=== PATIENT | male | born 1935 | race Caucasian/White ===

== ENCOUNTER 2017-03-19 09:04 | Inpatient (IN) | payer MEDICARE, MEDICAID ==
--- NOTE | 2017-03-19 09:28 | ED Physician Chart ---
ED Chief Complaint/HPI - Patient Information Date Seen:: 03/19/17 Time Seen:: 09:04 Chief Complaint:: Unable to urinate for 2 days. History of Present Illness:: Brought in by ambulance because pt has been unable to urinate for 2 days. 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 Pt required Paz catheterization about a year ago according to pt. Pt denies any abdominal pain. No fever or lightheadedness. Pt also had had nonbloody loose stool for 2 days. Last BM at about 0800 today that was loose and nonbloody. Pt denies recent travel, antibiotic use, or ingestion of any contaminated food or liquid. Allergies:: Allergies Allergy/AdvReac Type Severity Reaction Status Date / Time No Known Allergies Allergy Verified 03/19/17 09:12 Vitals:: Vital Signs - 8 hr 03/19/17 09:12 Temp 97.7 F HR 66 RR 17 BP 148/80 O2 Sat % 98 Historian:: Patient Family MD/PCP:: Dr. Jimenez LMP:: N/A Review:: Nurse's Note Reviewed ED Review of Systems - Review of Systems General/Constitutional: No fever, No chills, No weight loss, Weakness ( generalized), No edema, Loss of appetite Skin: No skin lesions, No rash, No bruising Head: No headache, No light-headedness Eyes: No loss of vision, No pain, No diplopia ENT: No earache, No nasal drainage, No sore throat Neck: Neck pain (Pt has had left mid lateral neck pain for 2 days that can be precipitated with palpation and neck movements. No h/o injury/trauma to his neck.), No swelling, No thyromegaly, No stiffness, No mass noted Cardio Vascular: No chest pain, No palpitations, No PND, No orthopnea, No edema Pulmonary: No SOB, No cough, No wheezing GI: No nausea, No vomiting, Diarrhea, No pain, No melena, No hematochezia, No hematemesis G/U: No dysuria, No frequency, No hematuria Musculoskeletal: Other (Neck pain, see above.) Endocrine: No polyuria, No polydipsia Psychiatric: No prior psych history Hematopoietic: No bruising, No lymphadenopathy Allergic/Immuno: No urticaria, No angioedema Neurological: No syncope, No focal symptoms, Weakness (generalized.), No paresthesia, No headache, No dizziness, No confusion ED Past Medical History - Past Medical History Past Medical History: Other (BPH) Family History: None Social History: Smoker ( 1 ppd. Pt has been informed about health risks assoicated with chronic tobacco use and has been advised to quit. Pt has been encouraged to enroll in a smoking cessation program. 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 Breathes comfortably, speaks clearly, and interacts appropriately. Head: Atraumatic Eyes: Lids, conjuctiva normal, PERRL, EOMI Skin: No rash, No skin lesions, No ecchymosis, No lymphadenopathy ENMT: External ears, nose nl, Nasal exam nl, Oropharynx nl Other ENMT comments:: Mucous membrane is dry. Neck: No JVD, No nuchal rigidity, No mass, No stridor Other Neck comments:: Mild tenderness to palpation at left mid lateral aspect. No gross deformity, erythema, swelling or open wound. Respiratory: Nl effort/Exclusion, Clear to Auscultation, No Wheeze/Rhonchi/Rales Cardio Vascular: RRR, No murmur, gallop, rubs GI: No tenderness/rebounding/guarding, No organomegaly, No hernia, Normal BS's, Nondistended, No mass/bruits, No McBurney tenderness Other GI comments:: Abdomen is soft. : No CVA tenderness Extremities: No tenderness or effusion, Full ROM, No edema Neuro/Psych: Alert/oriented (oriented x 3), Mood normal, No focal deficits ED Labs/Radiology/EKG Results - Lab Results Results: Laboratory Tests 03/19/17 03/19/17 03/19/17 09:30 09:30 09:30 WBC 7.2 RBC 3.77 L Hgb 11.4 L Hct 34.0 L MCV 90.1 MCH 30.1 MCHC Differential 33.5 RDW 14.7 Plt Count 158 MPV 7.7 Neutrophils % 89.8 H Lymphocytes % 6.1 L Monocytes % 3.5 Eosinophils % 0.4 Basophils % 0.2 PT 9.3 L INR 0.90 PTT (Actin FS) 22.8 L Sodium 136 Potassium 1.5 L* Chloride 100 Carbon Dioxide 22.0 Anion Gap 15.5 BUN 51 H Creatinine 4.7 H* Est GFR ( Amer) TNP Est GFR (Non-Af Amer) TNP BUN/Creatinine Ratio 10.9 Glucose 122 Calcium 8.5 L Total Bilirubin 0.8 AST 101 H ALT 87 H Alkaline Phosphatase 51 Total Protein 6.4 Albumin 3.6 L Globulin 2.8 Albumin/Globulin Ratio 1.3 Laboratory Last Values WBC 7.2 Th/cmm (4.8-10.8) 03/19/17 09:30 RBC 3.77 Mil/cmm (3.80-5.80) L 03/19/17 09:30 Hgb 11.4 gm/dL (12-16) L 03/19/17 09:30 Hct 34.0 % (41.0-60) L 03/19/17 09:30 MCV 90.1 fl (80-99) 03/19/17 09:30 MCH 30.1 pg (27.0-31.0) 03/19/17 09:30 MCHC Differential 33.5 pg (28.0-36.0) 03/19/17 09:30 RDW 14.7 % (11.5-20.0) 03/19/17 09:30 Plt Count 158 Th/cmm (150-400) 03/19/17 09:30 MPV 7.7 fl 03/19/17 09:30 Neutrophils % 89.8 % (40.0-80.0) H 03/19/17 09:30 Lymphocytes % 6.1 % (20.0-50.0) L 03/19/17 09:30 Monocytes % 3.5 % (2.0-10.0) 03/19/17 09:30 Eosinophils % 0.4 % (0.0-5.0) 03/19/17 09:30 Basophils % 0.2 % (0.0-2.0) 03/19/17 09:30 PT 9.3 SECONDS (9.5-11.5) L 03/19/17 09:30 INR 0.90 (0.5-1.4) 03/19/17 09:30 PTT (Actin FS) 22.8 SECONDS (26.0-38.0) L 03/19/17 09:30 Sodium 136 mEq/L (136-145) 03/19/17 09:30 Potassium 1.5 mEq/L (3.5-5.1) L* 03/19/17 09:30 Chloride 100 mEq/L (98-107) 03/19/17 09:30 Carbon Dioxide 22.0 mEq/L (21.0-31.0) 03/19/17 09:30 Anion Gap 15.5 (7.0-16.0) 03/19/17 09:30 BUN 51 mg/dL (7-25) H 03/19/17 09:30 Creatinine 4.7 mg/dL (0.7-1.3) H* 03/19/17 09:30 Est GFR ( Amer) TNP 03/19/17 09:30 Est GFR (Non-Af Amer) TNP 03/19/17 09:30 BUN/Creatinine Ratio 10.9 03/19/17 09:30 Glucose 122 mg/dL 03/19/17 09:30 Calcium 8.5 mg/dL (8.6-10.3) L 03/19/17 09:30 Magnesium 2.4 mg/dL (1.9-2.7) 03/19/17 09:30 Total Bilirubin 0.8 mg/dL (0.3-1.0) 03/19/17 09:30 AST 101 U/L (13-39) H 03/19/17 09:30 ALT 87 U/L (7-52) H 03/19/17 09:30 Alkaline Phosphatase 51 U/L (34-104) 03/19/17 09:30 Creatine Kinase 2080 U/L (30-223) H 03/19/17 10:14 Troponin I 0.16 ng/mL (0.01-0.05) H* 03/19/17 09:30 Total Protein 6.4 gm/dL (6.0-8.3) 03/19/17 09:30 Albumin 3.6 gm/dL (4.2-5.5) L 03/19/17 09:30 Globulin 2.8 gm/dL 03/19/17 09:30 Albumin/Globulin Ratio 1.3 (1.0-1.8) 03/19/17 09:30 Urine Source PAZ PORT 03/19/17 10:05 Urine Color YELLOW 03/19/17 10:05 Urine Clarity HAZY (CLEAR) 03/19/17 10:05 Urine pH 6.0 (4.6 - 8.0) 03/19/17 10:05 Ur Specific [place] 1.020 (1.005-1.030) 03/19/17 10:05 Urine Protein 30 mg/dL (NEGATIVE) H 03/19/17 10:05 Urine Glucose (UA) NEGATIVE mg/dL (NEGATIVE) 03/19/17 10:05 Urine Ketones NEGATIVE mg/dL (NEGATIVE) 03/19/17 10:05 Urine Blood LARGE (NEGATIVE) H 03/19/17 10:05 Urine Nitrate NEGATIVE (NEGATIVE) 03/19/17 10:05 Urine Bilirubin NEGATIVE (NEGATIVE) 03/19/17 10:05 Urine Urobilinogen 0.2 E.U./dL (0.2 - 1.0) 03/19/17 10:05 Ur Leukocyte Esterase NEGATIVE (NEGATIVE) 03/19/17 10:05 Urine RBC 5-10 /hpf (0-5) H 03/19/17 10:05 Urine WBC 0-2 /hpf (0-5) 03/19/17 10:05 Ur Epithelial Cells FEW /lpf (FEW) 03/19/17 10:05 Urine Bacteria OCCASIONAL /hpf (NONE SEEN) 03/19/17 10:05 - Radiology Results Results: CT of C spine report is pending. - EKG Interpretations EKG Time:: 10:08 Rate & Rhythm: Sinus bradycardia with VR 47 Comments:: RBBB and LAFB NSSTT changes. Cardiac monitoring: Sinus bradycardia with VR 50. No ectopy. ED Septic Shock - . Is Septic Shock (SBP<90, OR Lactate>4 mmol\L) present?: No - <6hrs of presentation: Vital Signs: Vital Signs - 8 hr 03/19/17 09:12 Temp 97.7 F HR 66 RR 17 BP 148/80 O2 Sat % 98 ED Reassessment (Disposition) - Reassessment Reassessment:: 1005 Lab results just became available. In light of hypokalemia, pt is to be put on cardiac monitoring. Pt is to be provided to potassium supplementation ( oral and IV). 12 lead EKG and magnesium level ordered. 1040 Remaining lab results just became available. Pt overall feels better and remains stable. Lab and EKG findings have been reviewed with pt. Management plan has been discussed. Admitting physician is to be contacted. 1100 Case was discussed with Dr. Land. Pt is to be admitted to ICU under his care. Dr. Land is to follow on pending CT report. 1140 Pt feels comfortable. He remains hemodynamicaly stable. Pt has produced about 200 ml urine since his arrival at ER. Pt continues to receive IV hydration and potassium. Reassessment Condition:: Improved - Diagnosis Diagnosis:: Hypokalemia Acute renal failure. Mildly elevated troponin I of unknown significance. Early rhabdomyolysis Neck pain of unknown etiology. H/O BPH with urinary retention H/O diarrhea - Patient Disposition Admitted to:: ICU Admitting Medical Physician:: Keith Land Time:: 11:45 Condition at Disposition:: Stable, Improved
[2017-03-19 09:36] LABS: % BASOPHILS 0.2 % (0.0-2.0); % EOSINOPHILS 0.4 % (0.0-5.0); % LYMPHOCYTES 6.1 % (20.0-50.0); % MONOCYTES 3.5 % (2.0-10.0); % NEUTROPHILS 89.8 % (40.0-80.0); HEMOGLOBIN 11.4 gm/dL (12-16); MEAN CELL VOLUME 90.1 fl (80-99); MEAN CORPUSCULAR HEMOGLOBIN 30.1 pg (27.0-31.0); MEAN CORPUSCULAR HGB CONC 33.5 pg (28.0-36.0); MEAN PLATELET VOLUME 7.7 fl; NEUTROPHILE ABSOLUTE 6.5 Th/cmm (1.8-8.0); PLATELET COUNT 158 Th/cmm (150-400); RED BLOOD COUNT 3.77 Mil/cmm (3.80-5.80); RED CELL DISTRIBUTION WIDTH 14.7 % (11.5-20.0); WHITE BLOOD COUNT 7.2 Th/cmm (4.8-10.8)
[2017-03-19] MEDS ORDERED: Sodium Chloride 0.9% 1,000 ML IV ONE (09:36)
[2017-03-19 09:49] LABS: INR 0.9 (0.5-1.4); PROTHROMBIN TIME (TEST) 9.3 SECONDS (9.5-11.5)
[2017-03-19 09:53] LABS: ALB/GLOB RATIO 1.3 (1.0-1.8); ALKALINE PHOSPHATASE 51 U/L (34-104); ANION GAP 15.5 (7.0-16.0); BILIRUBIN,TOTAL 0.8 mg/dL (0.3-1.0); BUN - UREA NITROGEN 51 mg/dL (7-25); BUN/CREATININE RATIO 10.9; CALCIUM SERUM 8.5 mg/dL (8.6-10.3); CHLORIDE 100 mEq/L (98-107); GLUCOSE 122 mg/dL; SGOT 101 U/L (13-39); SGPT/ALT 87 U/L (7-52); SODIUM SERUM 136 mEq/L (136-145)
[2017-03-19 09:56] LABS: CREATININE - SERUM 4.7 mg/dL (0.7-1.3); POTASSIUM SERUM 1.5 mEq/L (3.5-5.1)
[2017-03-19] MEDS ORDERED: Potassium Phosphate 20 MMOLE in Sodium Chloride 0.9% 250 ML IV ONE (10:04)
[2017-03-19] MEDS ORDERED: Potassium Chloride 20 mEq ER Tab PO ONE ×2 (10:07→10:15)
[2017-03-19 10:19] LABS: URINE BILIRUBIN NEGATIVE (NEGATIVE); URINE BLOOD LARGE (NEGATIVE); URINE GLUCOSE (UA) NEGATIVE (NEGATIVE); URINE KETONE NEGATIVE (NEGATIVE); URINE PROTEIN 30 mg/dL (NEGATIVE); URINE UROBILINOGEN 0.2 E.U./dL (0.2 - 1.0)
[2017-03-19 10:20] LABS: URINE COLOR YELLOW
[2017-03-19 10:24] LABS: URINE WBC 0-2 /hpf (0-5)
[2017-03-19 10:25] LABS: URINE BACTERIA OCCASIONAL /hpf (NONE SEEN); URINE EPITHELIAL CELLS FEW /lpf (FEW)
[2017-03-19] MEDS ORDERED: D5-0.45NS w/40 mEq KCL 1,000 ML IV ONE (10:37)
[2017-03-19] MEDS ORDERED: DEXTROSE IV ONE (10:46)
[2017-03-19] MEDS ORDERED: [UNRECOGNIZED DRUG - OTHER] IV ONE (10:46)
[2017-03-19] MEDS ORDERED: POTASSIUM CHLORIDE IV ONE (10:46)
[2017-03-19] MEDS ORDERED: KCL 20mEq/100mL Premix 20 MEQ/100 ML PIGGYBACK IV ONE ×2 (10:53→20:51)
[2017-03-19] MEDS ORDERED: D5-0.45NS 1,000 ML IV ONE (10:55)
[2017-03-19] MEDS: KCL 20mEq/100mL Premix 20 MEQ/100 ML PIGGYBACK IV SCH ×4 (10:56→22:54)
[2017-03-19 11:00] LABS: CREATINE KINASE MB 72.1 ng/mL (0.6-6.3)
--- NOTE | 2017-03-19 11:12 | Diagnostic Imaging Report ---
CT cervical spine without IV contrast HISTORY: Pain COMPARISON: None Technique: Axial images were obtained from the skull base to the upper thoracic spine without IV contrast. Multiplanar reconstructions were made. Total DLP: 284, CTDI14 FINDINGS: Images of the cervical spine obtained without contrast demonstrate no evidence of an acute fracture or subluxation. Osteopenia is noted. Advanced multilevel degenerative changes are seen including moderate to advanced disc space loss of height at C5/C6 and C6/C7. Mild multilevel marginal osteophytic spurring is noted. Advanced facet degenerative changes are also noted. No prevertebral soft tissue swelling. Increased density possible food contents are seen in the esophagus. Biapical lung pleural-parenchymal disease is noted. IMPRESSION: No evidence of acute fracture or subluxation. Advanced multilevel degenerative changes. Biapical pleural and parenchymal lung disease. Food contents or other ingested material within the proximal esophagus incidentally noted.
[2017-03-19] MEDS ORDERED: Potassium Chloride 40 MEQ, Lidocaine 1% 20mL Vial 25 MG in Sodium Chloride 0.9% 250 ML IV ONE (11:38)
[2017-03-19] MEDS ORDERED: D5-0.45NS 1,000 ML IV SCH (11:45)
[2017-03-19 12:57] LABS: ANION GAP 11.4 (7.0-16.0); BUN - UREA NITROGEN 49 mg/dL (7-25); BUN/CREATININE RATIO 10.7; CALCIUM SERUM 8.4 mg/dL (8.6-10.3); CARBON DIOXIDE 25.2 mEq/L (21.0-31.0); CHLORIDE 100 mEq/L (98-107); SODIUM SERUM 135 mEq/L (136-145)
[2017-03-19 13:06] LABS: CREATININE - SERUM 4.6 mg/dL (0.7-1.3); POTASSIUM SERUM 1.6 mEq/L (3.5-5.1)
[2017-03-19] MEDS ORDERED: Probiotic Screen MC PRN (13:22)
[2017-03-19 14:04] LABS: GLUCOSE 168 mg/dL
[2017-03-19] MEDS: Albuterol/Ipratropium Neb 3 ML AERS HHN SCH ×2 (14:09→19:14)
--- NOTE | 2017-03-19 16:55 | General Progress Note ---
Subjective - Review of Systems Service Date: 03/19/17 Subjective: 1540 ER Physician Note: Responded to Rapid Response Call immediately when I was notified at about 1508. On arrival, pt's nurse related that pt had transient episode of tachydysrrhythmia with surveillance monitor tracing shows a run of wide complex ventricular tachycardia, and pt became unresponsive. On exam, VS P99, R19, BP 148/69 O2 saturation 98% Accuchek 243. WD cachetic male in NAD. Pt is responsive to voice and tactile stimuli. HEENT unremarkable. Neck Supple, NT, carotid 2+/2+, no JVD COR RRR without m/g/r Lungs clear Ext no c/c/e. 12 lead EKG: Sinus bradycardia with VR 54, RBBB, LAFB, LVH, NSSTT changes. Imp: Transient unresponsiveness due to ventricular tachycardia, currently hemodynamically stable. Hypokalemia, on IV K rider. Acute renal failure. Plan: Amiodarone 150 mg IV over 10 minutes to be given. Case was discussed with Dr. Lei (punch hand) at about 1525. He was updated about pt's clinical status with repeat EKG reviewed. He concurred with treatment given. He resumed care of pt and gave further orders to pt's nurse. Case was signed off to Dr. Lei at about 1530. I also spoke with pt's attending physician Dr. Land on the phone at about 1533 and updated him about pt's clinical status with EKG reviewed. He also resumed care of pt and gave further orders to pt's nurse. Case was signed off to Dr. Land at about 1538. Objective - Results Result Diagrams: 03/19/17 09:30 03/19/17 12:36 Recent Labs: Laboratory Last Values WBC 7.2 Th/cmm (4.8-10.8) 03/19/17 09:30 RBC 3.77 Mil/cmm (3.80-5.80) L 03/19/17 09:30 Hgb 11.4 gm/dL (12-16) L 03/19/17 09:30 Hct 34.0 % (41.0-60) L 03/19/17 09:30 MCV 90.1 fl (80-99) 03/19/17 09:30 MCH 30.1 pg (27.0-31.0) 03/19/17 09:30 MCHC Differential 33.5 pg (28.0-36.0) 03/19/17 09:30 RDW 14.7 % (11.5-20.0) 03/19/17 09:30 Plt Count 158 Th/cmm (150-400) 03/19/17 09:30 MPV 7.7 fl 03/19/17 09:30 Neutrophils % 89.8 % (40.0-80.0) H 03/19/17 09:30 Lymphocytes % 6.1 % (20.0-50.0) L 03/19/17 09:30 Monocytes % 3.5 % (2.0-10.0) 03/19/17 09:30 Eosinophils % 0.4 % (0.0-5.0) 03/19/17 09:30 Basophils % 0.2 % (0.0-2.0) 03/19/17 09:30 PT 9.3 SECONDS (9.5-11.5) L 03/19/17 09:30 INR 0.90 (0.5-1.4) 03/19/17 09:30 PTT (Actin FS) 22.8 SECONDS (26.0-38.0) L 03/19/17 09:30 Sodium 135 mEq/L (136-145) L 03/19/17 12:36 Potassium 1.6 mEq/L (3.5-5.1) L* 03/19/17 12:36 Chloride 100 mEq/L (98-107) 03/19/17 12:36 Carbon Dioxide 25.2 mEq/L (21.0-31.0) 03/19/17 12:36 Anion Gap 11.4 (7.0-16.0) 03/19/17 12:36 BUN 49 mg/dL (7-25) H 03/19/17 12:36 Creatinine 4.6 mg/dL (0.7-1.3) H* 03/19/17 12:36 Est GFR ( Amer) TNP 03/19/17 12:36 Est GFR (Non-Af Amer) TNP 03/19/17 12:36 BUN/Creatinine Ratio 10.7 03/19/17 12:36 Glucose 168 mg/dL 03/19/17 12:36 Calcium 8.4 mg/dL (8.6-10.3) L 03/19/17 12:36 Magnesium 2.4 mg/dL (1.9-2.7) 03/19/17 09:30 Total Bilirubin 0.8 mg/dL (0.3-1.0) 03/19/17 09:30 AST 101 U/L (13-39) H 03/19/17 09:30 ALT 87 U/L (7-52) H 03/19/17 09:30 Alkaline Phosphatase 51 U/L (34-104) 03/19/17 09:30 Creatine Kinase 2080 U/L (30-223) H 03/19/17 10:14 CK-MB (CK-2) 72.1 ng/mL (0.6-6.3) H 03/19/17 10:14 Troponin I 0.16 ng/mL (0.01-0.05) H* 03/19/17 12:36 Total Protein 6.4 gm/dL (6.0-8.3) 03/19/17 09:30 Albumin 3.6 gm/dL (4.2-5.5) L 03/19/17 09:30 Globulin 2.8 gm/dL 03/19/17 09:30 Albumin/Globulin Ratio 1.3 (1.0-1.8) 03/19/17 09:30 Urine Source PAZ PORT 03/19/17 10:05 Urine Color YELLOW 03/19/17 10:05 Urine Clarity HAZY (CLEAR) 03/19/17 10:05 Urine pH 6.0 (4.6 - 8.0) 03/19/17 10:05 Ur Specific [place] 1.020 (1.005-1.030) 03/19/17 10:05 Urine Protein 30 mg/dL (NEGATIVE) H 03/19/17 10:05 Urine Glucose (UA) NEGATIVE mg/dL (NEGATIVE) 03/19/17 10:05 Urine Ketones NEGATIVE mg/dL (NEGATIVE) 03/19/17 10:05 Urine Blood LARGE (NEGATIVE) H 03/19/17 10:05 Urine Nitrate NEGATIVE (NEGATIVE) 03/19/17 10:05 Urine Bilirubin NEGATIVE (NEGATIVE) 03/19/17 10:05 Urine Urobilinogen 0.2 E.U./dL (0.2 - 1.0) 03/19/17 10:05 Ur Leukocyte Esterase NEGATIVE (NEGATIVE) 03/19/17 10:05 Urine RBC 5-10 /hpf (0-5) H 03/19/17 10:05 Urine WBC 0-2 /hpf (0-5) 03/19/17 10:05 Ur Epithelial Cells FEW /lpf (FEW) 03/19/17 10:05 Urine Bacteria OCCASIONAL /hpf (NONE SEEN) 03/19/17 10:05 - Physical Exam Vitals and I&O: Vital Signs Temp 97.6 F 03/19/17 12:06 Pulse 77 03/19/17 14:11 Resp 18 03/19/17 14:15 BP 166/67 03/19/17 12:06 Pulse Ox 98 03/19/17 16:02 Intake & Output 03/18/17 03/19/17 03/19/17 19:59 06:59 18:59 Weight (lbs) 54.431 kg Active Medications: Current Medications Acetaminophen (Tylenol) 650 mg PO Q6H PRN PRN Reason: Mild Pain/Headache/T above 101 Stop: 05/18/17 11:32 Albuterol/Ipratropium (Duoneb Neb) 3 ml HHN [id number] [facility] Stop: 05/18/17 12:59 Last Admin: 03/19/17 14:09 Dose: 3 ml Enalaprilat (Vasotec) 1.25 mg IVP Q6HR [facility] Stop: 05/18/17 17:59 Sodium Chloride (Nacl 0.9%) 1,000 mls @ 100 mls/hr IV .Q10H ONE Stop: 03/19/17 19:35 Dextrose/Sodium Chloride (D5-0.45ns) 1,000 mls @ 110 mls/hr IV .Q9H6M [facility] Stop: 05/18/17 11:44 Last Admin: 03/19/17 14:50 Dose: 110 mls/hr Miscellaneous (Probiotic Screen) 1 ea MC PRN PRN PRN Reason: PROTOCOL Stop: 05/18/17 13:21 Ondansetron HCl (Zofran) 4 mg IVP Q6H PRN PRN Reason: Nausea / Vomiting Stop: 05/18/17 11:32 Temazepam (Restoril) 15 mg PO HS PRN; Protocol PRN Reason: Insomnia Stop: 05/18/17 11:32 Assessment/Plan - Problem List Patient Problems: All Active Problems URINARY RETENTION WITH DIARRHEA (Acute)
--- NOTE | 2017-03-19 18:49 | Consultation ---
DATE OF CONSULTATION: 03/19/2017 EMERGENT VASCULAR CONSULT REFERRING PHYSICIAN: Dr. Oliva. REASON FOR CONSULTATION: No IV access for medications and fluid administration. Thank you for referring this patient to me. HISTORY OF PRESENT ILLNESS: This is a 81-year-old male, who comes in, unable to urinate for 2 days. Apparently, he has not been taking fluids as well. He denies abdominal pain, fever, or lightheadedness. LABORATORY STUDIES: Showed WBC is normal, hemoglobin 11.4, neutrophils is 59.8%, PT is 9.3, potassium is 1.5, BUN 51, creatinine of 4.7. The creatine kinase is elevated at 2080. CK MB is 72.1. X-ray study of the spine shows no evidence of acute fracture or subluxation. PHYSICAL EXAMINATION: The patient is extremely asthenic. He is awake and alert. He has no family. Per request of the flash welding machine operator, the patient needs a Anderson catheter for possible hemodialysis for rhabdomyolysis and/or severe dehydration. JOB# [id number]
[2017-03-19 19:45] VITALS: BP 156/98
[2017-03-19 19:56] LABS: ALB/GLOB RATIO 1.3 (1.0-1.8); ALKALINE PHOSPHATASE 48 U/L (34-104); ANION GAP 11.4 (7.0-16.0); BILIRUBIN,TOTAL 0.6 mg/dL (0.3-1.0); BUN - UREA NITROGEN 47 mg/dL (7-25); BUN/CREATININE RATIO 11.5; CALCIUM SERUM 8.2 mg/dL (8.6-10.3); CARBON DIOXIDE 24.1 mEq/L (21.0-31.0); CHLORIDE 103 mEq/L (98-107); GLUCOSE 113 mg/dL; SGOT 83 U/L (13-39); SGPT/ALT 78 U/L (7-52); SODIUM SERUM 137 mEq/L (136-145)
[2017-03-19 20:02] LABS: CREATININE - SERUM 4.1 mg/dL (0.7-1.3); POTASSIUM SERUM 1.5 mEq/L (3.5-5.1)
[2017-03-19] MEDS ORDERED: Potassium Chloride 60 MEQ, Lidocaine 1% 20mL Vial 25 MG in Sodium Chloride 0.9% 500 ML IV ONE (20:20)
--- NOTE | 2017-03-19 21:11 | Operative Report ---
DATE OF SURGERY: 03/19/2017 PREOPERATIVE DIAGNOSES: 1. Severe dehydration. 2. Rhabdomyolysis. 3. Azotemia. POSTOPERATIVE DIAGNOSES: 1. Severe dehydration. 2. Rhabdomyolysis. 3. Azotemia. OPERATION DONE: Insertion of Anderson catheter, left subclavian vein under ultrasound guidance. PROCEDURE: The left chest was prepped with ChloraPrep and draped in appropriate manner. Once lidocaine was used to infiltrate, the area was identified on ultrasound. The incision was made and size 18 needle was used inserted into the vein. The guide was inserted, the dilator and then the triple lumen catheter. It was anchored to chest wall with 3-0 silk. Portable chest x-ray will be ordered. [facility]# [id number]
[2017-03-19] MEDS ORDERED: Lidocaine 2% 5mL Abboject IVP SCH (23:45)
[2017-03-20] MEDS ORDERED: D5W IV SCH (00:30)
[2017-03-20] MEDS: Albuterol/Ipratropium Neb 3 ML AERS HHN SCH ×4 (00:30→19:04)
[2017-03-20] MEDS ORDERED: LIDOCAINE IV SCH (00:30)
[2017-03-20] MEDS: KCL 20mEq/100mL Premix 20 MEQ/100 ML PIGGYBACK IV SCH ×4 (00:52→10:34)
--- NOTE | 2017-03-20 01:08 | General Progress Note ---
Subjective - Review of Systems Service Date: 03/19/17 Subjective: 1540 ER Physician Note: Responded to Rapid Response Call immediately when I was notified at about 1508. On arrival, pt's nurse related that pt had transient episode of tachydysrrhythmia with court monitor tracing shows a run of wide complex ventricular tachycardia, and pt became unresponsive. On exam, VS P99, R19, BP 148/69 O2 saturation 98% Accuchek 243. WD cachetic male in NAD. Pt is responsive to voice and tactile stimuli. HEENT unremarkable. Neck Supple, NT, carotid 2+/2+, no JVD COR RRR without m/g/r Lungs clear Ext no c/c/e. 12 lead EKG: Sinus bradycardia with VR 54, RBBB, LAFB, LVH, NSSTT changes. Imp: Transient unresponsiveness due to ventricular tachycardia, currently hemodynamically stable. Hypokalemia, on IV K rider. Acute renal failure. Plan: Amiodarone 150 mg IV over 10 minutes to be given. Case was discussed with Dr. Lei (furniture upholstery mechanic) at about 1525. He was updated about pt's clinical status with repeat EKG reviewed. He concurred with treatment given. He resumed care of pt and gave further orders to pt's nurse. Case was signed off to Dr. Lei at about 1530. I also spoke with pt's attending physician Dr. Land on the phone at about 1533 and updated him about pt's clinical status with EKG reviewed. He also resumed care of pt and gave further orders to pt's nurse. Case was signed off to Dr. Land at about 1538. Objective - Results Result Diagrams: 03/19/17 09:30 03/19/17 19:35 Recent Labs: Laboratory Last Values WBC 7.2 Th/cmm (4.8-10.8) 03/19/17 09:30 RBC 3.77 Mil/cmm (3.80-5.80) L 03/19/17 09:30 Hgb 11.4 gm/dL (12-16) L 03/19/17 09:30 Hct 34.0 % (41.0-60) L 03/19/17 09:30 MCV 90.1 fl (80-99) 03/19/17 09:30 MCH 30.1 pg (27.0-31.0) 03/19/17 09:30 MCHC Differential 33.5 pg (28.0-36.0) 03/19/17 09:30 RDW 14.7 % (11.5-20.0) 03/19/17 09:30 Plt Count 158 Th/cmm (150-400) 03/19/17 09:30 MPV 7.7 fl 03/19/17 09:30 Neutrophils % 89.8 % (40.0-80.0) H 03/19/17 09:30 Lymphocytes % 6.1 % (20.0-50.0) L 03/19/17 09:30 Monocytes % 3.5 % (2.0-10.0) 03/19/17 09:30 Eosinophils % 0.4 % (0.0-5.0) 03/19/17 09:30 Basophils % 0.2 % (0.0-2.0) 03/19/17 09:30 Eos Smear Source URINE 03/19/17 16:25 Eos Smear Total Cells NONE SEEN (NONE SEEN) 03/19/17 16:25 PT 9.3 SECONDS (9.5-11.5) L 03/19/17 09:30 INR 0.90 (0.5-1.4) 03/19/17 09:30 PTT (Actin FS) 22.8 SECONDS (26.0-38.0) L 03/19/17 09:30 Sodium 137 mEq/L (136-145) 03/19/17 19:35 Potassium 1.5 mEq/L (3.5-5.1) L* 03/19/17 19:35 Chloride 103 mEq/L (98-107) 03/19/17 19:35 Carbon Dioxide 24.1 mEq/L (21.0-31.0) 03/19/17 19:35 Anion Gap 11.4 (7.0-16.0) 03/19/17 19:35 BUN 47 mg/dL (7-25) H 03/19/17 19:35 Creatinine 4.1 mg/dL (0.7-1.3) H* 03/19/17 19:35 Est GFR ( Amer) TNP 03/19/17 19:35 Est GFR (Non-Af Amer) TNP 03/19/17 19:35 BUN/Creatinine Ratio 11.5 03/19/17 19:35 Glucose 113 mg/dL 03/19/17 19:35 Calcium 8.2 mg/dL (8.6-10.3) L 03/19/17 19:35 Phosphorus 2.6 mg/dL (2.5-5.0) 03/19/17 19:35 Magnesium 2.4 mg/dL (1.9-2.7) 03/19/17 19:35 Total Bilirubin 0.6 mg/dL (0.3-1.0) 03/19/17 19:35 AST 83 U/L (13-39) H 03/19/17 19:35 ALT 78 U/L (7-52) H 03/19/17 19:35 Alkaline Phosphatase 48 U/L (34-104) 03/19/17 19:35 Creatine Kinase 2080 U/L (30-223) H 03/19/17 10:14 CK-MB (CK-2) 72.1 ng/mL (0.6-6.3) H 03/19/17 10:14 Troponin I 0.16 ng/mL (0.01-0.05) H* 03/20/17 00:15 Total Protein 5.8 gm/dL (6.0-8.3) L 03/19/17 19:35 Albumin 3.3 gm/dL (4.2-5.5) L 03/19/17 19:35 Globulin 2.5 gm/dL 03/19/17 19:35 Albumin/Globulin Ratio 1.3 (1.0-1.8) 03/19/17 19:35 Urine Source PAZ PORT 03/19/17 10:05 Urine Color YELLOW 03/19/17 10:05 Urine Clarity HAZY (CLEAR) 03/19/17 10:05 Urine pH 6.0 (4.6 - 8.0) 03/19/17 10:05 Ur Specific [place] 1.020 (1.005-1.030) 03/19/17 10:05 Urine Protein 30 mg/dL (NEGATIVE) H 03/19/17 10:05 Urine Glucose (UA) NEGATIVE mg/dL (NEGATIVE) 03/19/17 10:05 Urine Ketones NEGATIVE mg/dL (NEGATIVE) 03/19/17 10:05 Urine Blood LARGE (NEGATIVE) H 03/19/17 10:05 Urine Nitrate NEGATIVE (NEGATIVE) 03/19/17 10:05 Urine Bilirubin NEGATIVE (NEGATIVE) 03/19/17 10:05 Urine Urobilinogen 0.2 E.U./dL (0.2 - 1.0) 03/19/17 10:05 Ur Leukocyte Esterase NEGATIVE (NEGATIVE) 03/19/17 10:05 Urine RBC 5-10 /hpf (0-5) H 03/19/17 10:05 Urine WBC 0-2 /hpf (0-5) 03/19/17 10:05 Ur Epithelial Cells FEW /lpf (FEW) 03/19/17 10:05 Urine Bacteria OCCASIONAL /hpf (NONE SEEN) 03/19/17 10:05 Urine Creatinine 60.0 mg/dl (39.0-259.0) 03/19/17 16:25 - Physical Exam Vitals and I&O: Vital Signs Temp 97.8 F 03/19/17 19:00 Pulse 42 03/20/17 00:30 Resp 18 03/20/17 00:30 BP 156/98 03/19/17 19:45 Pulse Ox 100 03/20/17 00:30 Intake & Output 03/19/17 03/19/17 03/20/17 06:59 18:59 06:59 Weight (lbs) 54.431 kg Active Medications: Current Medications Acetaminophen (Tylenol) 650 mg PO Q6H PRN PRN Reason: Mild Pain/Headache/T above 101 Stop: 05/18/17 11:32 Albuterol/Ipratropium (Duoneb Neb) 3 ml HHN [id number] [facility] Stop: 05/18/17 12:59 Last Admin: 03/20/17 00:30 Dose: 3 ml Enalaprilat (Vasotec) 1.25 mg IVP Q6HR PRN PRN Reason: SBP > 170 [facility] Stop: 05/18/17 18:14 Potassium Chloride (Potassium Chloride) 20 meq in 100 mls @ 50 mls/hr IV Q2H [facility] Stop: 03/20/17 02:44 Last Admin: 03/20/17 00:52 Dose: 50 mls/hr Potassium Chloride/Dextrose/Sod Cl (D5-0.45ns W/40 Meq Kcl) 1,000 mls @ 120 mls /hr IV .Q8H20M [facility] Stop: 05/19/17 00:00 Last Admin: 03/20/17 00:25 Dose: 120 mls/hr Lidocaine HCl/Dextrose (Xylocaine / Dextrose 5% Premix) 2 gm in 500 mls @ 0 mls /hr IV TITR TO PRN Reason: Protocol Stop: 05/19/17 00:29 Lidocaine HCl (Xylocaine 2% 5ml Syr) 5 ml IVP 2345 [facility] Stop: 03/20/17 02:00 Last Admin: 03/19/17 23:50 Dose: 5 ml Loperamide HCl (Imodium) 2 mg PO Q6H PRN PRN Reason: Diarrhea Stop: 05/18/17 20:52 Miscellaneous (Probiotic Screen) 1 ea PRN PRN PRN Reason: PROTOCOL Stop: 05/18/17 13:21 Miscellaneous (Tpn Per Pharmacy) 1 ea PRN PRN PRN Reason: PROTOCOL Stop: 05/19/17 06:59 Ondansetron HCl (Zofran) 4 mg IVP Q6H PRN PRN Reason: Nausea / Vomiting Stop: 05/18/17 11:32 Temazepam (Restoril) 15 mg PO HS PRN; Protocol PRN Reason: Insomnia Stop: 05/18/17 11:32 Assessment/Plan - Problem List Patient Problems: All Active Problems URINARY RETENTION WITH DIARRHEA (Acute)
--- NOTE | 2017-03-20 01:20 | General Progress Note ---
Subjective - Review of Systems Service Date: 03/19/17 Subjective: 2319 ER Physician Note: Responded to [employer] overhead announcement immediately at about 2310. On arrival, pt was alert and responsive. Pt's nurse stated that pt had a run of ventricular tachycardia. She had given a precordial thump for the patient, and the patient woke up immediately. On exam, pt is alert and responsive to verbal commands. Pt denies any pain or discomfort. VS P58 BP 167/65 R18 O2 saturation 99% HEENT unremarkable. Neck supple, no JVD, carotid 2+/2+. COR RR with mild bradycardia, VR 58. Lungs clear. telemetry monitor shows Sinus bradycardia with VR 59. No ectopy. Case was discussed with pt's optimization specialist Dr. Lei at about 2316. He resumed care of pt and gave further orders for nursing staff. Case was signed off to Dr. Lei at 5. Objective - Results Result Diagrams: 03/19/17 09:30 03/19/17 19:35 Recent Labs: Laboratory Last Values WBC 7.2 Th/cmm (4.8-10.8) 03/19/17 09:30 RBC 3.77 Mil/cmm (3.80-5.80) L 03/19/17 09:30 Hgb 11.4 gm/dL (12-16) L 03/19/17 09:30 Hct 34.0 % (41.0-60) L 03/19/17 09:30 MCV 90.1 fl (80-99) 03/19/17 09:30 MCH 30.1 pg (27.0-31.0) 03/19/17 09:30 MCHC Differential 33.5 pg (28.0-36.0) 03/19/17 09:30 RDW 14.7 % (11.5-20.0) 03/19/17 09:30 Plt Count 158 Th/cmm (150-400) 03/19/17 09:30 MPV 7.7 fl 03/19/17 09:30 Neutrophils % 89.8 % (40.0-80.0) H 03/19/17 09:30 Lymphocytes % 6.1 % (20.0-50.0) L 03/19/17 09:30 Monocytes % 3.5 % (2.0-10.0) 03/19/17 09:30 Eosinophils % 0.4 % (0.0-5.0) 03/19/17 09:30 Basophils % 0.2 % (0.0-2.0) 03/19/17 09:30 Eos Smear Source URINE 03/19/17 16:25 Eos Smear Total Cells NONE SEEN (NONE SEEN) 03/19/17 16:25 PT 9.3 SECONDS (9.5-11.5) L 03/19/17 09:30 INR 0.90 (0.5-1.4) 03/19/17 09:30 PTT (Actin FS) 22.8 SECONDS (26.0-38.0) L 03/19/17 09:30 Sodium 137 mEq/L (136-145) 03/19/17 19:35 Potassium 1.5 mEq/L (3.5-5.1) L* 03/19/17 19:35 Chloride 103 mEq/L (98-107) 03/19/17 19:35 Carbon Dioxide 24.1 mEq/L (21.0-31.0) 03/19/17 19:35 Anion Gap 11.4 (7.0-16.0) 03/19/17 19:35 BUN 47 mg/dL (7-25) H 03/19/17 19:35 Creatinine 4.1 mg/dL (0.7-1.3) H* 03/19/17 19:35 Est GFR ( Amer) TNP 03/19/17 19:35 Est GFR (Non-Af Amer) TNP 03/19/17 19:35 BUN/Creatinine Ratio 11.5 03/19/17 19:35 Glucose 113 mg/dL 03/19/17 19:35 Calcium 8.2 mg/dL (8.6-10.3) L 03/19/17 19:35 Phosphorus 2.6 mg/dL (2.5-5.0) 03/19/17 19:35 Magnesium 2.4 mg/dL (1.9-2.7) 03/19/17 19:35 Total Bilirubin 0.6 mg/dL (0.3-1.0) 03/19/17 19:35 AST 83 U/L (13-39) H 03/19/17 19:35 ALT 78 U/L (7-52) H 03/19/17 19:35 Alkaline Phosphatase 48 U/L (34-104) 03/19/17 19:35 Creatine Kinase 2080 U/L (30-223) H 03/19/17 10:14 CK-MB (CK-2) 72.1 ng/mL (0.6-6.3) H 03/19/17 10:14 Troponin I 0.16 ng/mL (0.01-0.05) H* 03/20/17 00:15 Total Protein 5.8 gm/dL (6.0-8.3) L 03/19/17 19:35 Albumin 3.3 gm/dL (4.2-5.5) L 03/19/17 19:35 Globulin 2.5 gm/dL 03/19/17 19:35 Albumin/Globulin Ratio 1.3 (1.0-1.8) 03/19/17 19:35 Urine Source PAZ PORT 03/19/17 10:05 Urine Color YELLOW 03/19/17 10:05 Urine Clarity HAZY (CLEAR) 03/19/17 10:05 Urine pH 6.0 (4.6 - 8.0) 03/19/17 10:05 Ur Specific Transfer 1.020 (1.005-1.030) 03/19/17 10:05 Urine Protein 30 mg/dL (NEGATIVE) H 03/19/17 10:05 Urine Glucose (UA) NEGATIVE mg/dL (NEGATIVE) 03/19/17 10:05 Urine Ketones NEGATIVE mg/dL (NEGATIVE) 03/19/17 10:05 Urine Blood LARGE (NEGATIVE) H 03/19/17 10:05 Urine Nitrate NEGATIVE (NEGATIVE) 03/19/17 10:05 Urine Bilirubin NEGATIVE (NEGATIVE) 03/19/17 10:05 Urine Urobilinogen 0.2 E.U./dL (0.2 - 1.0) 03/19/17 10:05 Ur Leukocyte Esterase NEGATIVE (NEGATIVE) 03/19/17 10:05 Urine RBC 5-10 /hpf (0-5) H 03/19/17 10:05 Urine WBC 0-2 /hpf (0-5) 03/19/17 10:05 Ur Epithelial Cells FEW /lpf (FEW) 03/19/17 10:05 Urine Bacteria OCCASIONAL /hpf (NONE SEEN) 03/19/17 10:05 Urine Creatinine 60.0 mg/dl (39.0-259.0) 03/19/17 16:25 - Physical Exam Vitals and I&O: Vital Signs Temp 97.8 F 03/19/17 19:00 Pulse 42 03/20/17 00:30 Resp 18 03/20/17 00:30 BP 156/98 03/19/17 19:45 Pulse Ox 100 03/20/17 00:30 Intake & Output 03/19/17 03/19/17 03/20/17 06:59 18:59 06:59 Weight (lbs) 54.431 kg Active Medications: Current Medications Acetaminophen (Tylenol) 650 mg PO Q6H PRN PRN Reason: Mild Pain/Headache/T above 101 Stop: 05/18/17 11:32 Albuterol/Ipratropium (Duoneb Neb) 3 ml HHN [id number] [facility] Stop: 05/18/17 12:59 Last Admin: 03/20/17 00:30 Dose: 3 ml Enalaprilat (Vasotec) 1.25 mg IVP Q6HR PRN PRN Reason: SBP > 170 MMHG Stop: 05/18/17 18:14 Potassium Chloride (Potassium Chloride) 20 meq in 100 mls @ 50 mls/hr IV Q2H [facility] Stop: 03/20/17 02:44 Last Admin: 03/20/17 00:52 Dose: 50 mls/hr Potassium Chloride/Dextrose/Sod Cl (D5-0.45ns W/40 Meq Kcl) 1,000 mls @ 120 mls /hr IV .Q8H20M [facility] Stop: 05/19/17 00:00 Last Admin: 03/20/17 00:25 Dose: 120 mls/hr Lidocaine HCl/Dextrose (Xylocaine / Dextrose 5% Premix) 2 gm in 500 mls @ 0 mls /hr IV TITR TO PRN Reason: Protocol Stop: 05/19/17 00:29 Lidocaine HCl (Xylocaine 2% 5ml Syr) 5 ml IVP 2345 [facility] Stop: 03/20/17 02:00 Last Admin: 03/19/17 23:50 Dose: 5 ml Loperamide HCl (Imodium) 2 mg PO Q6H PRN PRN Reason: Diarrhea Stop: 05/18/17 20:52 Miscellaneous (Probiotic Screen) 1 ea MC PRN PRN PRN Reason: PROTOCOL Stop: 05/18/17 13:21 Miscellaneous (Tpn Per Pharmacy) 1 ea MC PRN PRN PRN Reason: PROTOCOL Stop: 05/19/17 06:59 Ondansetron HCl (Zofran) 4 mg IVP Q6H PRN PRN Reason: Nausea / Vomiting Stop: 05/18/17 11:32 Temazepam (Restoril) 15 mg PO HS PRN; Protocol PRN Reason: Insomnia Stop: 05/18/17 11:32 Assessment/Plan - Problem List Patient Problems: All Active Problems URINARY RETENTION WITH DIARRHEA (Acute)
[2017-03-20] MEDS ORDERED: Potassium Chloride 20 mEq ER Tab PO ONE (04:06)
[2017-03-20 05:21] LABS: MEAN CELL VOLUME 89.7 fl (80-99); MEAN CORPUSCULAR HEMOGLOBIN 29.8 pg (27.0-31.0); MEAN CORPUSCULAR HGB CONC 33.2 pg (28.0-36.0); PLATELET COUNT 132 Th/cmm (150-400); RED BLOOD COUNT 3.37 Mil/cmm (3.80-5.80); RED CELL DISTRIBUTION WIDTH 14.9 % (11.5-20.0); WHITE BLOOD COUNT 7.7 Th/cmm (4.8-10.8)
[2017-03-20 05:25] LABS: HEMATOCRIT 30.2 % (41.0-60)
[2017-03-20 05:40] LABS: ALB/GLOB RATIO 1.3 (1.0-1.8); ALKALINE PHOSPHATASE 44 U/L (34-104); ANION GAP 10.4 (7.0-16.0); BILIRUBIN,TOTAL 0.6 mg/dL (0.3-1.0); BUN - UREA NITROGEN 41 mg/dL (7-25); BUN/CREATININE RATIO 11.7; CALCIUM SERUM 7.7 mg/dL (8.6-10.3); CARBON DIOXIDE 23.3 mEq/L (21.0-31.0); CHLORIDE 106 mEq/L (98-107); CREATININE - SERUM 3.5 mg/dL (0.7-1.3); GLUCOSE 130 mg/dL; MAGNESIUM 2.2 mg/dL (1.9-2.7); PHOSPHOROUS 2.5 mg/dL (2.5-5.0); SGOT 66 U/L (13-39); SGPT/ALT 68 U/L (7-52); SODIUM SERUM 138 mEq/L (136-145)
[2017-03-20 06:03] LABS: POTASSIUM SERUM 1.7 mEq/L (3.5-5.1)
--- NOTE | 2017-03-20 06:35 | Consultation ---
DATE OF CONSULTATION: 03/19/2017 HISTORY OF PRESENT ILLNESS: This 81-year-old male who was seen and examined at the courtesy of Dr. Land. The patient was admitted here to the Emergency Room and was brought to the Emergency Room with 1-week history of diarrhea and inability to urinate. The patient was evaluated in the Emergency Room and then admitted. A cardiac catheterization was called. The patient did have episode of ventricular tachycardia, which was attended and treated by ER MD, admitted to ICU. The patient was found to have severe hypokalemia, potassium only 1.5. The patient was dehydrated. He was also found to be in acute renal failure. His troponin was mildly elevated. The patient does have history of hypertension. PHYSICAL EXAMINATION: VITAL SIGNS: At present, heart rate was 46, blood pressure was 130/70. SKIN: Normal. HEAD: Normocephalic. EYES: Conjunctivae were pink. There is no icterus in the eyes. Pupils equally reactive to light. NECK: There were no increased jugular venous distention, no thyromegaly, no lymphadenopathy. Carotids equal both sides. CHEST: Bilaterally symmetrical, moved well with respiration. Respiratory movements equal both sides. Trachea is central. There is note to percussion. Breath sounds, few rales. CARDIOVASCULAR SYSTEM: PMI not well localized and no pulsation or thrill. No parasternal heave, S1 normal, S2 physiologic. There were no S3, no rub. ABDOMEN: Soft, no tenderness, no rigidity, no guarding and no organomegaly. Bowel sound normal. EXTREMITIES: No calf tenderness. Peripheral pulses diminished. LABORATORY DATA: Sodium was 137, potassium 1.5, chloride 103, CO2 24, glucose 113, BUN 47, creatinine 4.1. AST 83, ALT 78. Troponin was 0.17 and then repeat one was 0.16. Calcium was 8.4. ____ was 2080. Magnesium was 2.4. Urinalysis showed large amount of blood. WBC count was 7.2, hemoglobin 11.4, hematocrit 34, platelet count was 158. INR was 0.90. CAT scan of cervical spine showed no evidence of acute fracture or subluxation. There was multilevel degenerative changes by apical pleural and parenchymal lung disease. On reviewing the rhythm strip, the patient did have sustained ventricular tachycardia. Post-EKG has shown sinus tachycardia, PACs. IMPRESSION: Severe dehydration, severe hypokalemia, probably diarrhea for 1 week, ventricular tachycardia most probably secondary to severe hypokalemia, acute renal failure, mild increase in troponin level, significance of which may be ____ or because of acute renal failure, bradyarrhythmia, now the patient seems to be in heart rate of in the 40s in junctional rhythm, history of hypertension, history of benign prostatic hypertrophy. Impression as outlined above. DISCUSSION AND PLAN: The patient was given amiodarone after which the patient developed bradycardia. We also tried lidocaine, but the patient again went in to bradyarrhythmia. Lidocaine was discontinued, but since then there has been no episode of V-tach. The patient is getting huge amounts of potassium supplement both p.o. and IV. Nephrology is seen the patient and managing the electrolyte imbalance and renal function. We will get lipid profile, thyroid profile, echocardiogram to evaluate left ventricular function and valvular structure and repeat EKG in the meantime to continue present regimen to keep a very close watch on the cardiac rhythm. I have discussed with RN. JOB# [id number]
[2017-03-20 06:51] LABS: BAND NEUTROPHILE 0 % (0-10); NEUTROPHILS 86 % (40-80); TOTAL CELLS COUNTED 100
[2017-03-20 06:52] LABS: BASOPHIL 0 % (0-3); EOSINOPHIL 1 % (0-5); PLATELET ESTIMATE ADEQUATE (NORMAL); PLATELET MORPHOLOGY NORMAL (NORMAL)
[2017-03-20] MEDS: Potassium Chloride Elixir 20 mEq /15 mL UDC PO SCH ×4 (07:00→21:37)
--- NOTE | 2017-03-20 07:24 | Diagnostic Imaging Report ---
Portable chest x-ray HISTORY: Anderson catheter placement. Findings: Portable examination of chest at 1711 hours reviewed. No prior studies available comparison. The study demonstrates left subclavian catheter terminating superior vena cava. There is no evidence for pneumothorax. There is no evidence for active pulmonic infiltrates or effusions. COPD changes are noted. Bony thorax intact. IMPRESSION: Satisfactory placement of left subclavian catheter terminating in the superior vena cava. COPD changes
--- NOTE | 2017-03-20 07:27 | Diagnostic Imaging Report ---
Exam: Renal ultrasound. HISTORY: Acute renal failure. Findings: Real-time ultrasound summation kidneys performed multiple planes. The study demonstrates no evidence of obstructive uropathy or nephrolithiasis. The kidneys are atrophic bilaterally. Right kidney measures 7.8 x 3.3 x 2.6 cm diameter Left kidney measures 8.8 x 4.1 x 3.5 cm diameter. The urinary bladder is intact. The prostate gland is enlarged. IMPRESSION: Renal atrophy bilaterally no evidence of obstructive uropathy. Enlarged prostate gland.
[2017-03-20] MEDS ORDERED: Alteplase, Recombinant 100 mg Kit IV STA (08:37)
--- NOTE | 2017-03-20 08:46 | Consultation ---
Consult Note - Consult Note Service Date: 03/20/17 Referring Physician: Keith Land Consult Note: PHYSICIAN Consultation Note: Date of Admission: 03/19/17 Purpose of Consultation: Diarrhea, suspect CDAC. Chief Complaint: Patient NAHOMY CHOW was admitted to location Intensive Care Unit with ACUTE RENAL FAILURE AND SEVERE HYPOKALEMIA. History of Present Illness: Patient is 81 year old male with history of BPH, Cachexia, smoking, COPD, brought to the ED for watery, uncontrollable, dark colored diarrhea for last 7 days. It was associated with dizziness and weakness. He denied any cramps and abdominal pains. He denied any fevers. He stopped urinating for last two days, so he was called 911 and brought to the ED for evaluation. He also lost appetite for last two days. Past Medical History: BPH, Cachexia, smoking, COPD, cachexia. Diagnoses DEHYDRATION (03/19/17) HYPOKALEMIA (03/19/17) NICOTINE DEPENDENCE, CIGARETTES, UNCOMPLICATED (03/19/17) VENTRICULAR TACHYCARDIA (03/19/17) RHABDOMYOLYSIS (03/19/17) ACUTE KIDNEY FAILURE, UNSPECIFIED (03/19/17) BENIGN PROSTATIC HYPERPLASIA WITH LOWER URINARY TRACT SYMP (03/19/17) CACHEXIA (03/19/17) BODY MASS INDEX (BMI) 19.9 OR LESS, ADULT (03/19/17) Allergies Allergy/AdvReac Type Severity Reaction Status Date / Time No Known Allergies Allergy Verified 03/19/17 09:12 Vital Signs Temp 98.3 F 03/20/17 04:00 Pulse 48 03/20/17 07:00 Resp 11 03/20/17 07:00 BP 148/85 03/20/17 07:00 Pulse Ox 100 03/20/17 07:00 Intake & Output 03/19/17 03/20/17 03/20/17 18:59 06:59 18:59 Intake Total 523 2067.500 Output Total 1100 1600 Balance -577 467.500 Weight (lbs) 54.573 kg 47.99 kg Intake: Intake, IV Amount 103 1867.500 D5-0.45NS 1,000 ml @ 110 1000 mls/hr IV .Q9H6M TO Rx#: [id number] D5-0.45NS w/40 mEq KCL 1, 670 000 ml @ 120 mls/hr IV . Q8H20M TO Rx#:[id number] KCL 20mEq/100mL Premix 20 197.500 meq In 100 ml @ 50 mls/ hr IV Q2H TO Rx#: [id number] Oral 420 200 Output: Urine 1100 1600 Other: # Bowel Movements 0 Laboratory Results - last 24 hr 03/19/17 03/19/17 03/19/17 12:36 12:36 16:25 WBC RBC Hgb Hct MCV MCH MCHC Differential RDW Plt Count MPV Band Neutrophils % Neutrophils (Manual) Lymphocytes Monocytes Eosinophils Basophils Platelet Estimate Platelet Morphology RBC Morph Micro Appear Eos Smear Source Eos Smear Total Cells Sodium 135 L Potassium 1.6 L* Chloride 100 Carbon Dioxide 25.2 Anion Gap 11.4 BUN 49 H Creatinine 4.6 H* Est GFR ( Amer) TNP Est GFR (Non-Af Amer) TNP BUN/Creatinine Ratio 10.7 Glucose 168 Calcium 8.4 L Phosphorus Magnesium Total Bilirubin AST ALT Alkaline Phosphatase Creatine Kinase Troponin I 0.16 H* Total Protein Albumin Globulin Albumin/Globulin Ratio Urine Creatinine 60.0 03/19/17 03/19/17 03/19/17 16:25 19:35 19:35 WBC RBC Hgb Hct MCV MCH MCHC Differential RDW Plt Count MPV Band Neutrophils % Neutrophils (Manual) Lymphocytes Monocytes Eosinophils Basophils Platelet Estimate Platelet Morphology RBC Morph Micro Appear Eos Smear Source URINE Eos Smear Total Cells NONE SEEN Sodium 137 Potassium 1.5 L* Chloride 103 Carbon Dioxide 24.1 Anion Gap 11.4 BUN 47 H Creatinine 4.1 H* Est GFR ( Amer) TNP Est GFR (Non-Af Amer) TNP BUN/Creatinine Ratio 11.5 Glucose 113 Calcium 8.2 L Phosphorus Magnesium Total Bilirubin 0.6 AST 83 H ALT 78 H Alkaline Phosphatase 48 Creatine Kinase Troponin I 0.17 H* Total Protein 5.8 L Albumin 3.3 L Globulin 2.5 Albumin/Globulin Ratio 1.3 Urine Creatinine 03/19/17 03/19/17 03/20/17 19:35 19:35 00:15 WBC RBC Hgb Hct MCV MCH MCHC Differential RDW Plt Count MPV Band Neutrophils % Neutrophils (Manual) Lymphocytes Monocytes Eosinophils Basophils Platelet Estimate Platelet Morphology RBC Morph Micro Appear Eos Smear Source Eos Smear Total Cells Sodium Potassium Chloride Carbon Dioxide Anion Gap BUN Creatinine Est GFR ( Amer) Est GFR (Non-Af Amer) BUN/Creatinine Ratio Glucose Calcium Phosphorus 2.6 Magnesium 2.4 Total Bilirubin AST ALT Alkaline Phosphatase Creatine Kinase Troponin I 0.16 H* Total Protein Albumin Globulin Albumin/Globulin Ratio Urine Creatinine 03/20/17 03/20/17 03/20/17 04:35 04:35 07:45 WBC 7.7 RBC 3.37 L Hgb 10.0 L Hct 30.2 L D MCV 89.7 MCH 29.8 MCHC Differential 33.2 RDW 14.9 Plt Count 132 L MPV 8.0 Band Neutrophils % 0 Neutrophils (Manual) 86 H Lymphocytes 8 L Monocytes 5 Eosinophils 1 Basophils 0 Platelet Estimate ADEQUATE Platelet Morphology NORMAL RBC Morph Micro Appear NORMAL Eos Smear Source Eos Smear Total Cells Sodium 138 Potassium 1.7 L* Chloride 106 Carbon Dioxide 23.3 Anion Gap 10.4 BUN 41 H Creatinine 3.5 H Est GFR ( Amer) TNP Est GFR (Non-Af Amer) TNP BUN/Creatinine Ratio 11.7 Glucose 130 Calcium 7.7 L Phosphorus 2.5 Magnesium 2.2 Total Bilirubin 0.6 AST 66 H ALT 68 H Alkaline Phosphatase 44 Creatine Kinase 1160 H Troponin I 0.13 H* D Total Protein 5.4 L Albumin 3.0 L Globulin 2.4 Albumin/Globulin Ratio 1.3 Urine Creatinine Home Medication Medication Instructions Recorded Type NK [No Home Meds] 03/19/17 History Current Medications Generic Name Dose Route Start Last Admin Trade Name Freq PRN Reason Stop Dose Admin Acetaminophen 650 mg 03/19/17 11:33 Tylenol PO 05/18/17 11:32 Q6H PRN Mild Pain/Headache/T above 101 Albuterol/Ipratropium 3 ml 03/19/17 13:00 03/20/17 06:46 Duoneb Neb HHN 05/18/17 12:59 3 ml [id number] TO Administration Alteplase, Recombinant 100 mg 03/20/17 08:37 Activase IV 03/20/17 08:38 NOW STA Enalaprilat 1.25 mg 03/19/17 18:09 Vasotec IVP 05/18/17 18:14 Q6HR PRN SBP > 170 MMHG Potassium Chloride/Dextrose/Sod Cl 1,000 mls @ 120 mls/hr 03/20/17 00:00 10/29 06:00 D5-0.45ns W/40 Meq Kcl IV 05/19/17 00:00 120 mls/hr .Q8H20M TO Infusion Lidocaine HCl/Dextrose 2 gm in 500 mls @ 0 mls/hr 03/20/17 00:30 Xylocaine / Dextrose 5% Premix IV 05/19/17 00:29 TITR TO Protocol Potassium Chloride 20 meq in 100 mls @ 50 mls/hr 03/20/17 06:30 03/20/17 06: 29 Potassium Chloride IV 03/20/17 12:29 50 mls/hr Q2H TO Administration Potassium Chloride 40 meq/ 272.5 mls @ 68 mls/hr 03/20/17 08:30 Lidocaine HCl 25 mg/ Sodium IV 03/20/17 12:30 Chloride X1 ONE Levofloxacin 250 mg in 50 mls @ 50 mls/hr 03/20/17 09:00 Levaquin Pb IV 05/19/17 08:59 Q24HR TO Lactobacillus Rhamnosus 1 each 03/20/17 09:00 Culturelle PO 05/19/17 08:59 TID TO Loperamide HCl 2 mg 03/19/17 20:53 Imodium PO 05/18/17 20:52 Q6H PRN Diarrhea Miscellaneous 1 03/19/17 13:22 Probiotic Screen 05/18/17 13:21 PRN PRN PROTOCOL Miscellaneous 1 03/20/17 07:00 Tpn Per Pharmacy 05/19/17 06:59 PRN PRN PROTOCOL Ondansetron HCl 4 mg 03/19/17 11:33 Zofran IVP 05/18/17 11:32 Q6H PRN Nausea / Vomiting Potassium Chloride 20 meq 03/20/17 07:00 Potassium Chloride Elixir PO 05/19/17 06:59 Q3HR TO Temazepam 15 mg 03/19/17 11:33 Restoril PO 05/18/17 11:32 HS PRN Insomnia Protocol Vancomycin HCl 250 mg 03/20/17 09:00 Vancomycin Oral PO 05/19/17 08:59 QID TO Review of Systems: A 12 point ROS was reviewed with the pertinent positive and negatives noted in the HPI. Gen: Patient denies any fever, chills, night sweats, weight loss. C/o generalized weakness. HEENT: He denies any diplopia, photophobia, earache, sore throat. RS: He denies any cough or shortness of breath. CVS: He denies any CP, palpitations, and leg swelling. GI: He denies any abdominal pain, nausea, vomiting. He c/o watery dark colored uncontrollable diarrhea x 7 days. It was associated with loss of appetite for 2 days. : He denies any dysuria, hematuria. c/o of no urine out put on presentation x 2 days. Now urinating well after placement of the Vergara catheter ( 2700 ml urine out put). MS: Denies any joint pain or swelling, denies any muscle pains. 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 c/o dizziness since he has developed diarrhea. Social History Smoking Status Current every day smoker Drug Use No Alcohol Use No Family Medical History Unknown. Physical Exam: General: comfortable, lethargic, not in acute distress. HEENT: Head is normocephalic and atraumatic. Oral cavity is moist and pink tongue, eyes pallor is present, no icterus. Neck: supple, no JVD, no carotid bruit. Cardio: S1 and S 2 WNL. no murmur. Respiratory: Vesicular breath sounds, occasional crackles, no wheezing. Abdominal: Soft NT ND BS preesnt, Genital/Urinary: deferred. Extremities: NCCE Neurological: Alert awake, oriented x 3, no focal neurodeficit. Assessment: 1. diarrhea, gastroenteritis versus CDAC. Likely secretory diarrhea. 2. Acute renal failure, likely ATN on unknown CKD. 3. Rhabdomyolysis. 4. Seizure disorder. 5. Hypokalemia. 6. Loss of appetite, 2/2 to acute renal failure. Plan: WIll continue vanco PO and levaquin. Start flagyl. CT A/p. Stool studies including stool for C diff. Depending of further information/data, will define further therapy. Prognosis is guarded. Thank you Dr. Land for involving me in taking care of this patient. Oniel, Lit Jimenez M.D. [id number]
[2017-03-20] MEDS ORDERED: D5-0.45NS w/40 mEq KCL 1,000 ML IV SCH ×2 (08:48)
[2017-03-20] MEDS ORDERED: Potassium Chloride 40 MEQ, Lidocaine 1% 20mL Vial 25 MG in Sodium Chloride 0.9% 250 ML IV ONE ×2 (09:00→09:15)
[2017-03-20] MEDS ORDERED: Vancomycin HCL 250 mg /10mL UDC PO SCH (09:00)
[2017-03-20] MEDS: Levofloxacin 250mg/50mL 250 MG/50 ML BAG IV SCH (09:40)
[2017-03-20] MEDS: Diphenoxylate/Atropine 2.5mg Tab PO PRN (10:30)
[2017-03-20] MEDS ORDERED: Lactobacillus Rhamnosus 10 Billion CFU Capsule PO SCH (11:00)
--- NOTE | 2017-03-20 12:20 | History & Physical ---
ADMIT DATE: PATIENT IDENTIFICATION: An 81-year-old male. CHIEF COMPLAINT: Diarrhea for 1 week, unable to urinate. HISTORY SOURCE: Talking to the patient, reviewing the note and talking to the Emergency Room MD. HISTORY OF PRESENT ILLNESS: An 81-year-old [place] male with no significant past medical history, currently employed. Started diarrhea approximately 6 days ago, continues to persist in spite of taking [id number] medication. The patient states that he is unable to eat and drink and noticed that he was unable to urinate. He brought himself to the Emergency Room where the patient was noted to have hypokalemia, acute renal failure and the patient was noted to have a ventricular tachycardia in the ICU. The patient has now been admitted to the hospital for further treatment. PAST MEDICAL HISTORY: DJD. MEDICATIONS AT HOME: None. ALLERGIES: None. SOCIAL HISTORY: Lives by himself. He lives in [facility]. No history of any smoking cigarette, alcohol or drug use. FAMILY MEDICAL HISTORY: Remarkable for diabetes and hypertension. REVIEW OF SYSTEMS: The patient is complaining of generalized body ache, joint pain along with feeling very weak. Denies any chest pain. Denies any headache. Denies any blurred vision or double vision. Denies any fever or chills. Denies any shortness of breath. Denies any nausea or vomiting. Denies any seizure or syncopal episode. Denies any cough. PHYSICAL EXAMINATION: GENERAL: Alert, awake, lying in the bed. VITAL SIGNS: Temperature 98, pulse is 54, respiratory rate is 18, blood pressure 148/85. HEENT: Normocephalic, atraumatic. Extraocular muscles are intact. Tongue was pink and coated. NECK: Supple. No JVD. No hepatojugular reflux. No lymphadenopathy, thyromegaly or carotid bruit. HEART: Both heart sounds are regular, positive for grade 2/6 systolic murmur. CHEST: Lung equal in expansion. No wheezing, no crackles. ABDOMEN: Soft. No guarding, rigidity. Bowel sounds are present. No palpable mass. EXTREMITIES: No edema. +1 edema, no calf tenderness noted. NEUROLOGIC: Alert, awake, follows commands. Decreased power throughout the upper and lower extremities noted, decreased parts of the upper and lower extremity noted. AVAILABLE DIAGNOSTIC DATA: Performed in the Emergency Room has been reviewed. CLINICAL IMPRESSION: 1. Electrolytes pending hypokalemia. 2. Acute renal failure, most likely secondary to acute kidney injury secondary to ATN. 3. Ventricular tachycardia secondary to hypokalemia. 4. Rhabdomyolysis. 5. Acute onset of diarrhea, etiology. The patient suspect infections in etiology. 6. Chronic obstructive pulmonary disease by chest x-ray. 7. Slightly elevated troponin. 8. Sinus bradycardia. PLAN: 1. I admit this patient to ICU. 2. Replace potassium. 3. IV fluid. 4. Stool studies. 5. Infectious Disease, Nephrology as well as Cardiology consultation. 6. Start with p.o. Vancocin for now until stool studies are back along with adding with IV Levaquin for now. Stool cultures will be done. Stool for C. diff toxin will be done. 7. Acute kidney injury workup will be done by checking for urine sodium, urine creatinine, and urine osmolality, urine sediment along with renal ultrasound will be done as well. The patient will be given symptomatic therapy. We will follow the lab and follow the solutions consultant recommendations as well. Care plan reviewed and discussed with RN. The patient remained full code while patient is in the hospital. JOB# [id number]
[2017-03-20] MEDS ORDERED: Atropine Sulfate 1 mg/mL 1 mL Vial IVP PRN (12:24)
[2017-03-20] MEDS: Vancomycin HCL 250 mg /10mL UDC PO SCH ×4 (13:00→21:37)
--- NOTE | 2017-03-20 14:44 | Consultation ---
DATE OF CONSULTATION: 03/19/2017 LOCATION: [facility] ICU bed 6. ATTENDING PHYSICIAN: Dr. Land. Thank you very much, Dr. Land for this consult. IDENTIFICATION: This is an 81-year-old male patient not able to give any history. History has been taken from the ER physician and partly from the patient. HISTORY OF PRESENT ILLNESS: This 81-year-old male patient who lives at home. The patient is still working. The patient for the last 7 days has profuse diarrhea. He stopped making urinating about 2 days ago. The patient while at work was found to have lethargic, unable to stand, emergent 911 was called. The patient was brought to the Emergency Room of [facility]. The patient was found to have severe electrolyte imbalance, advanced renal failure. The patient has been transferred to ICU, urgent renal and critical care consult has been requested. According to the Emergency Room chart, patient has Vergara catheter placed in. Bladder scan was not done before. Bladder scan is not available in the hospital, all over the hospital. Upon putting the Vergara catheter, the patient has put out about 200 mL of urine in last about 3 hours. The patient has received about 60-70 milliequivalent of potassium by mouth. The patient has been started on IV fluid with 20 mEq running at about 2 mEq per hour at this time only. The patient a while ago has developed SVT and rapid response was called. At this time, the patient's heart rate is about 52, on monitor and blood pressure is 136/60. A Vergara catheter is draining cloudy color urine. The patient seems to be very confused and lethargic at this time. The patient still is having diarrhea. While patient is here, he did not have any seizures. He did not have any vomiting. There is no history of chest pain prior to this. The patient did not have any cardiac arrhythmias prior to coming to the CCU. The patient does not have any family member available at this time. PAST MEDICAL AND SURGICAL HISTORY: There is a vague history of urinary retention in the past with prostate hypertrophy. The patient indeed required Vergara catheterization about a year ago. Other than that, there is no history available to me. PHYSICAL EXAMINATION: GENERAL: This 81-year-old male patient, very cachectic with very dry skin, eyes are shrunken, and skin dry. VITAL SIGNS: Temperature 97.6, pulse is varying between 48-77, blood pressure 166/67, respiration rate 16, and oxygen saturation is 96%. HEENT: Normocephalic, cachectic, obvious muscle mass wasting. Eyes: Sclerae nonicteric. Conjunctivae are pale. Pupils reactive. EAR, NOSE, THROAT: No bleeding or discharge. NECK: Jugular venous pressure is flattened. No neck stiffness. LUNGS: Good air entry. No rales or rhonchi. CARDIOVASCULAR: Heart is regular, S1, S2 normal. ABDOMEN: Soft. No suprapubic fullness. Bowel sounds present. EXTREMITIES: No edema of the legs. Dry skin. SIGNIFICANT LABORATORY DATA: Sodium 136, potassium 1.5, chloride 100, CO2 of 22, BUN 51, creatinine 4.7, calcium 8.5. SGOT, SGPT elevated. Albumin 3.6. WBC 7.2, hemoglobin 11.4, platelet 158,000. Urinalysis: Protein positive, blood large, leukocyte negative, nitrite negative. IMPRESSION: 1. Acute kidney injury. 2. Severe hypokalemia. 3. Urinary retention. 4. History of BPH. 5. Cardiac arrhythmias. 6. Malnutrition. 7. Volume depletion secondary to diarrhea. 8. Poor veins. No peripheral IV access available at this time. PLAN: The patient's acute kidney injury and hypokalemia, could be secondary to severe diarrhea and malnutrition, could be also with a combination of urinary retention secondary to prostate enlargement. The patient does not have IV access. I have requested Dr. Thrasher to come here on an urgent base to put a triple lumen Anderson catheter, so it can be used for IV potassium rider. Also, if necessary dialysis and possibly TPN. There is no family member available. The patient is not very conscious and very alert, considering the urgency of this, I will sign and I will have Emergency Room co-sign this also. Once we have a good IV access available, I will start patient on IV potassium rider. I will check BMP in about 3-4 hours after potassium rider is over. I will obtain magnesium, phosphorus, TSH. The patient will be started on TPN, diarrhea management and workup will be initiated. We will check CMP, kidney ultrasound, TSH. Further workup will depend upon the outcome of this management. While I am dictating this, Dr. Thrasher is here and I have requested him to insert a triple lumen Anderson. Total time spent on the management of this patient is about 90 minutes. JOB# [id number]
--- NOTE | 2017-03-20 15:06 | Diagnostic Imaging Report ---
CT scan abdomen and pelvis without intravenous contrast HISTORY mass, colitis Total DLP equals 293 CTDI equals 6.7 Axial sections were obtained from the xiphoid process down to the pubic symphysis. The exam is extremely limited due to a limited amount of intra-abdominal fat and absence of oral/bowel contrast. There is very poor delineation of the bowel wall margins. Limited sections of the lower chest demonstrate mild pleural thickening in the left lower hemithorax and mild nonspecific parenchymal changes in the left lung base that appear chronic. Evidence of small amount of perihepatic fluid/ascites is noted. No focal lesions seen within the liver. The spleen appears normal. The pancreas cannot be well visualized. No focal renal lesions. Diffuse extensive atherosclerotic vascular calcification noted throughout the aorta and major branches. Evaluation of the pelvis is also very limited due to the factors noted above. There is a mild to moderately distended stool-filled rectum. A Vergara catheter is seen within the urinary bladder. There is enlarged prostate gland. Severe degenerative changes noted to the spine. IMPRESSION: 1. Very Limited/suboptimal exam due to a limited amount of intra-abdominal fat and absence of oral/bowel contrast. Poor delineation of bowel wall margins and the margins of the intra-abdominal organs. 2. Small amount of ascites 3. Extensive atherosclerotic vascular changes 4. Prostate enlargement 5. Severe degenerative changes through the spine
[2017-03-20] MEDS: D5 IV SCH ×2 (17:05→21:38)
[2017-03-20] MEDS: [UNRECOGNIZED DRUG - OTHER] IV SCH ×2 (17:05→21:38)
[2017-03-20] MEDS: POTASSIUM CHLORIDE IV SCH ×2 (17:05→21:38)
--- NOTE | 2017-03-20 21:11 | Cardiology ---
03/20/[address] Land. M-MODE ECHOCARDIOGRAM: Mitral valve, anterior leaflet of mitral valve shows normal excursion, EF velocity. Posterior leaflet of mitral valve shows normal excursion. Left ventricle posterior wall shows increased thickness, normal excursion. Interventricular septum shows increased thickness, normal excursion, hypertrophy of the left ventricle, ejection fraction 55%. Left atrium normal. Aortic root shows normal dimension, normal excursion of aortic leaflets. CONCLUSION: Hypertrophy of the left ventricle, ejection fraction 55%. 2D ECHO: Long-axis view showed a normal-sized left ventricle with hypertrophy of the left ventricle. Left atrium normal. Aortic root shows normal dimension and normal excursion of aortic leaflets. Short-axis view of mitral valve normal, short-axis view of aortic valve normal. Apical four-chamber view showed normal-sized left ventricle, left atrium, right ventricle, right atrium, tricuspid mitral valve, ejection fraction 55%. CONCLUSION: Hypertrophy of the left ventricle, ejection fraction 55%. Doppler study shows prominent T waves consistent with poor compliance of left ventricle, trace mild mitral regurgitation, mild tricuspid regurgitation, mild aortic regurgitation. JOB# [id number]
--- NOTE | 2017-03-20 23:18 | Progress Notes ---
DATE: LOCATION: [facility], ICU bed #6. SUBJECTIVE: The patient seems to be more alert. The patient had both p.o. and IV KCl rider given throughout the night. In spite of this, patient's potassium has not improved this morning. Meanwhile, the patient has been tolerating p.o. food well. Diarrhea is decreasing. Vergara catheter has increased the urine. PHYSICAL EXAMINATION: VITAL SIGNS: Stable. Temperature 98.7, pulse 53, and blood pressure 148/70. Intake 2590 and output 1970. HEART: Regular. LUNGS: Good air entry. ABDOMEN: Soft, nontender. EXTREMITIES: No edema. SIGNIFICANT LABORATORY DATA: Today, WBC 7.7, hemoglobin 10.0, and platelet 132,000. Sodium 138, potassium 1.7, repeat potassium 2, chloride 106, CO2 23, BUN improved to 41, creatinine improved to 3.5, and calcium 7.7. LFTs: SGOT 66, SGPT 68, both of them improving. Albumin 3.0. ASSESSMENT: 1. Acute kidney injury, improving. 2. Hypokalemia, improving. 3. Prostate enlargement with obstructive uropathy. 4. Cardiac arrhythmias. 5. Malnutrition. PLAN: We will increase IV KCl into normal saline 100 mL plus 20 of KCl to keep running at rate of 125 mL per hour, also add potassium by mouth. We will start patient on TPN. Check CMP, phosphorus, magnesium, and CBC in the morning. The patient may benefit with Urology consult. Case has been discussed with Dr. Camarillo and ICU staff multiple times in the last 10 to last 12 hours. JOB# [id number]
[2017-03-21] MEDS: Potassium Chloride Elixir 20 mEq /15 mL UDC PO SCH ×4 (00:17→08:16)
[2017-03-21] MEDS: D5 IV SCH (03:17)
[2017-03-21] MEDS: [UNRECOGNIZED DRUG - OTHER] IV SCH (03:17)
[2017-03-21] MEDS: POTASSIUM CHLORIDE IV SCH (03:17)
[2017-03-21 06:11] LABS: % BASOPHILS 0.3 % (0.0-2.0); % EOSINOPHILS 0.7 % (0.0-5.0); % LYMPHOCYTES 8.4 % (20.0-50.0); % MONOCYTES 6.5 % (2.0-10.0); % NEUTROPHILS 84.1 % (40.0-80.0); HEMATOCRIT 27.2 % (41.0-60); HEMOGLOBIN 9.1 gm/dL (12-16); MEAN CELL VOLUME 90.6 fl (80-99); MEAN CORPUSCULAR HEMOGLOBIN 30.4 pg (27.0-31.0); MEAN CORPUSCULAR HGB CONC 33.6 pg (28.0-36.0); MEAN PLATELET VOLUME 7.9 fl; NEUTROPHILE ABSOLUTE 4.7 Th/cmm (1.8-8.0); PLATELET COUNT 118 Th/cmm (150-400); RED CELL DISTRIBUTION WIDTH 15.3 % (11.5-20.0)
[2017-03-21 06:13] LABS: WHITE BLOOD COUNT 5.6 Th/cmm (4.8-10.8)
[2017-03-21 06:31] LABS: ALB/GLOB RATIO 1.3 (1.0-1.8); ALKALINE PHOSPHATASE 39 U/L (34-104); ANION GAP 7.4 (7.0-16.0); BILIRUBIN,TOTAL 0.5 mg/dL (0.3-1.0); BUN - UREA NITROGEN 29 mg/dL (7-25); BUN/CREATININE RATIO 11.6; CALCIUM SERUM 7.8 mg/dL (8.6-10.3); CARBON DIOXIDE 22.2 mEq/L (21.0-31.0); CHLORIDE 115 mEq/L (98-107); CREATININE - SERUM 2.5 mg/dL (0.7-1.3); GLUCOSE 102 mg/dL; PHOSPHOROUS 1.9 mg/dL (2.5-5.0); POTASSIUM SERUM 4.6 mEq/L (3.5-5.1); SGOT 44 U/L (13-39); SGPT/ALT 55 U/L (7-52); SODIUM SERUM 140 mEq/L (136-145)
[2017-03-21] MEDS: Albuterol/Ipratropium Neb 3 ML AERS HHN SCH ×3 (07:16→19:27)
[2017-03-21] MEDS: Vancomycin HCL 250 mg /10mL UDC PO SCH ×4 (08:16→20:44)
[2017-03-21] MEDS: Diphenoxylate/Atropine 2.5mg Tab PO PRN (08:16)
[2017-03-21] MEDS ORDERED: Sodium Phos / Potassium Phos 1.25 GM PACK PO SCH (09:00)
[2017-03-21] MEDS ORDERED: NS IV SCH ×2 (09:00→09:58)
[2017-03-21] MEDS ORDERED: POTASSIUM PHOSPHATE IV SCH ×2 (09:00→09:58)
[2017-03-21] MEDS ORDERED: D5 IV SCH ×2 (09:00→09:58)
[2017-03-21] MEDS: Levofloxacin 250mg/50mL 250 MG/50 ML BAG IV SCH (09:46)
--- NOTE | 2017-03-21 12:35 | Infectious Disease Prog Note ---
Infectious Disease Subjective - Review of Systems Service Date: 03/21/17 Events since last encounter: There is no new change. Subjective: No change, diarrhea persists ( liquid ). Infectious Disease Objective - Results Result Diagrams: 03/21/17 06:00 03/21/17 12:10 Recent Labs: Laboratory Last Values WBC 5.6 Th/cmm (4.8-10.8) D 03/21/17 06:00 RBC 3.00 Mil/cmm (3.80-5.80) L 03/21/17 06:00 Hgb 9.1 gm/dL (12-16) L 03/21/17 06:00 Hct 27.2 % (41.0-60) L 03/21/17 06:00 MCV 90.6 fl (80-99) 03/21/17 06:00 MCH 30.4 pg (27.0-31.0) 03/21/17 06:00 MCHC Differential 33.6 pg (28.0-36.0) 03/21/17 06:00 RDW 15.3 % (11.5-20.0) 03/21/17 06:00 Plt Count 118 Th/cmm (150-400) L 03/21/17 06:00 MPV 7.9 fl 03/21/17 06:00 Neutrophils % 84.1 % (40.0-80.0) H 03/21/17 06:00 Band Neutrophils % 0 % (0-10) 03/20/17 04:35 Lymphocytes % 8.4 % (20.0-50.0) L 03/21/17 06:00 Monocytes % 6.5 % (2.0-10.0) 03/21/17 06:00 Eosinophils % 0.7 % (0.0-5.0) 03/21/17 06:00 Basophils % 0.3 % (0.0-2.0) 03/21/17 06:00 Neutrophils (Manual) 86 % (40-80) H 03/20/17 04:35 Lymphocytes 8 % (20-50) L 03/20/17 04:35 Monocytes 5 % (2-10) 03/20/17 04:35 Eosinophils 1 % (0-5) 03/20/17 04:35 Basophils 0 % (0-3) 03/20/17 04:35 Platelet Estimate ADEQUATE (NORMAL) 03/20/17 04:35 Platelet Morphology NORMAL (NORMAL) 03/20/17 04:35 RBC Morph Micro Appear NORMAL (NORMAL) 03/20/17 04:35 Eos Smear Source URINE 03/19/17 16:25 Eos Smear Total Cells NONE SEEN (NONE SEEN) 03/19/17 16:25 PT 9.3 SECONDS (9.5-11.5) L 03/19/17 09:30 INR 0.90 (0.5-1.4) 03/19/17 09:30 PTT (Actin FS) 22.8 SECONDS (26.0-38.0) L 03/19/17 09:30 Sodium 140 mEq/L (136-145) 03/21/17 06:00 Potassium 5.3 mEq/L (3.5-5.1) H 03/21/17 12:10 Chloride 115 mEq/L (98-107) H 03/21/17 06:00 Carbon Dioxide 22.2 mEq/L (21.0-31.0) 03/21/17 06:00 Anion Gap 7.4 (7.0-16.0) 03/21/17 06:00 BUN 29 mg/dL (7-25) H 03/21/17 06:00 Creatinine 2.5 mg/dL (0.7-1.3) H 03/21/17 06:00 Est GFR ( Amer) TNP 03/21/17 06:00 Est GFR (Non-Af Amer) TNP 03/21/17 06:00 BUN/Creatinine Ratio 11.6 03/21/17 06:00 Glucose 102 mg/dL 03/21/17 06:00 POC Glucose 243 MG/DL (70-105) H 03/19/17 15:14 Calcium 7.8 mg/dL (8.6-10.3) L 03/21/17 06:00 Phosphorus 1.9 mg/dL (2.5-5.0) L 03/21/17 06:00 Magnesium 2.0 mg/dL (1.9-2.7) 03/21/17 06:00 Total Bilirubin 0.5 mg/dL (0.3-1.0) 03/21/17 06:00 AST 44 U/L (13-39) H 03/21/17 06:00 ALT 55 U/L (7-52) H 03/21/17 06:00 Alkaline Phosphatase 39 U/L (34-104) 03/21/17 06:00 Creatine Kinase 1160 U/L (30-223) H 03/20/17 04:35 CK-MB (CK-2) 31.0 ng/mL (0.6-6.3) H 03/20/17 04:35 Troponin I 0.13 ng/mL (0.01-0.05) H* D 03/20/17 07:45 Total Protein 5.0 gm/dL (6.0-8.3) L 03/21/17 06:00 Albumin 2.8 gm/dL (4.2-5.5) L 03/21/17 06:00 Globulin 2.2 gm/dL 03/21/17 06:00 Albumin/Globulin Ratio 1.3 (1.0-1.8) 03/21/17 06:00 Urine Source PAZ PORT 03/19/17 10:05 Urine Color YELLOW 03/19/17 10:05 Urine Clarity HAZY (CLEAR) 03/19/17 10:05 Urine pH 6.0 (4.6 - 8.0) 03/19/17 10:05 Ur Specific [place] 1.020 (1.005-1.030) 03/19/17 10:05 Urine Protein 30 mg/dL (NEGATIVE) H 03/19/17 10:05 Urine Glucose (UA) NEGATIVE mg/dL (NEGATIVE) 03/19/17 10:05 Urine Ketones NEGATIVE mg/dL (NEGATIVE) 03/19/17 10:05 Urine Blood LARGE (NEGATIVE) H 03/19/17 10:05 Urine Nitrate NEGATIVE (NEGATIVE) 03/19/17 10:05 Urine Bilirubin NEGATIVE (NEGATIVE) 03/19/17 10:05 Urine Urobilinogen 0.2 E.U./dL (0.2 - 1.0) 03/19/17 10:05 Ur Leukocyte Esterase NEGATIVE (NEGATIVE) 03/19/17 10:05 Urine RBC 5-10 /hpf (0-5) H 03/19/17 10:05 Urine WBC 0-2 /hpf (0-5) 03/19/17 10:05 Ur Epithelial Cells FEW /lpf (FEW) 03/19/17 10:05 Urine Bacteria OCCASIONAL /hpf (NONE SEEN) 03/19/17 10:05 Urine Creatinine 60.0 mg/dl (39.0-259.0) 03/19/17 16:25 Stool Occult Blood NEGATIVE (NEGATIVE) 03/21/17 08:00 Stool Leukocyte NO WBC SEEN 03/20/17 08:10 - Physical Exam Vitals and I&O: Vital Signs Temp 100.5 F 03/21/17 11:00 Pulse 64 03/21/17 11:00 Resp 16 03/21/17 11:00 BP 151/55 03/21/17 11:00 Pulse Ox 100 03/21/17 11:00 Intake & Output 03/20/17 03/21/17 03/21/17 18:59 06:59 18:59 Intake Total 1000 1493.333 41.667 Output Total 1450 850 Balance -450 643.333 41.667 Weight (lbs) 47.344 kg 50.893 kg Intake: Intake, IV Amount 50 1493.333 41.667 Levofloxacin 250mg/50mL 50 250 mg In 50 ml @ 50 mls/ hr IV Q24HR [facility] Rx#: [id number] Potassium Chloride 60 meq 1493.333 41.667 In D5-0.9NS 500 ml @ 125 mls/hr IV .[id number] [facility] Rx #:[id number] Oral 950 Output: Urine 1450 850 Other: # Bowel Movements 2 1 Stool Characteristics Liquid Soft Liquid Brown Active Medications: Current Medications Acetaminophen (Tylenol) 650 mg PO Q6H PRN PRN Reason: Mild Pain/Headache/T above 101 Stop: 05/18/17 11:32 Last Admin: 03/21/17 11:28 Dose: 650 mg Albuterol/Ipratropium (Duoneb Neb) 3 ml HHN [id number] [facility] Stop: 05/18/17 12:59 Last Admin: 03/21/17 07:16 Dose: 3 ml Atropine Sulfate (Atropine) 1 mg IVP Q4HR PRN PRN Reason: HEART RATE LESS THAN 40 Diphenoxylate HCl/Atropine (Lomotil) 2 tab PO Q6HR PRN PRN Reason: Diarrhea Stop: 05/19/17 08:51 Last Admin: 03/21/17 08:16 Dose: 2 tab Enalaprilat (Vasotec) 1.25 mg IVP Q6HR PRN PRN Reason: SBP > 170 MMHG Stop: 05/18/17 18:14 Last Admin: 03/21/17 09:33 Dose: 1.25 mg Levofloxacin (Levaquin Pb) 250 mg in 50 mls @ 50 mls/hr IV Q24HR [facility] Stop: 05/19/17 08:59 Last Admin: 03/21/17 09:46 Dose: 50 mls/hr Dextrose/Sodium Chloride (D5-0.9%Ns) 1,000 mls @ 70 mls/hr IV .[id number] [facility] Stop: 05/20/17 21:29 Potassium Phosphate 20 mmole/ (Dextrose/Sodium Chloride) 1,006.66 mls @ 70 mls/ hr IV .[id number] [facility] Stop: 03/21/17 23:22 Last Admin: 03/21/17 10:03 Dose: 70 mls/hr Loperamide HCl (Imodium) 2 mg PO Q6H PRN PRN Reason: Diarrhea Stop: 05/18/17 20:52 Last Admin: 03/20/17 16:41 Dose: 2 mg Metronidazole (Flagyl) 500 mg PO TID [facility] Stop: 04/03/17 13:59 Last Admin: 03/21/17 09:25 Dose: 500 mg Miscellaneous (Probiotic Screen) 1 ea MC PRN PRN PRN Reason: PROTOCOL Stop: 05/18/17 13:21 Morphine Sulfate (Morphine) 1 mg IVP Q4HR PRN PRN Reason: Pain (Moderate) Stop: 05/19/17 12:24 Ondansetron HCl (Zofran) 4 mg IVP Q6H PRN PRN Reason: Nausea / Vomiting Stop: 05/18/17 11:32 Last Admin: 03/21/17 10:04 Dose: 4 mg Potassium Phos/Sodium Phos (Neutra-Phos) 1.25 gm PO TID [facility] Stop: 05/20/17 08:59 Last Admin: 03/21/17 09:25 Dose: 1.25 gm Temazepam (Restoril) 15 mg PO HS PRN; Protocol PRN Reason: Insomnia Stop: 05/18/17 11:32 Vancomycin HCl (Vancomycin Oral) 250 mg PO QID [facility] Stop: 05/19/17 10:59 Last Admin: 03/21/17 08:16 Dose: 250 mg General: no acute distress, well developed, well nourished HEENT: atraumatic, normocephalic, moist mucous membrane Neck: supple, no thyromegaly Cardiovascular: S1S2, regular Lungs: clear to auscultation bilaterally, clear to percussion Abdomen: soft, no tender, no distended Extremities: no cyanosis, no clubbing, no edema Neurological: awake, alert, oriented Skin: intact - Procedures Procedures: Procedures Procedure Code Date INSERT TUNNELED CV CATH [id number] 03/19/17 INSERTION OF INFUSION DEV INTO L SUBCLAV VEIN, PERC APPROACH [id number] 03/19/17 Infectious Disease Assmt/Plan - Problem List Patient Problems: All Active Problems URINARY RETENTION WITH DIARRHEA (Acute) - Assessment Assessment: 1. diarrhea, gastroenteritis versus CDAC. Likely secretory diarrhea. 2. Acute renal failure, likely ATN on unknown CKD. 3. Rhabdomyolysis. 4. Seizure disorder. 5. Hypokalemia. 6. Loss of appetite, 2/2 to acute renal failure. - Plan Plan: Continue the same treatment. Nutritional Asmnt/Malnutr-PDOC - Dietary Evaluation Malnutrition Findings (Please click <Entered> for more info): Nutritional Asmnt/Malnutrition Start: 03/20/17 14: 53 Text: Status: Active Freq: Document 03/20/17 14:53 HENG (Rec: 03/20/17 15:38 HENG [id number]) Nutritional Asmnt/Malnutrition Patient General Information Nutritional Screening High Risk Consult Diagnosis Acute renal failure and Severe Hypokalemia Pertinent Medical Hx/Surgical Hx BPH, Cachexia, COPD Subjective Information Pt was alert during the time of visit. Pt stated wt loss recently, but not able to tell his UBW. Before addmitted, appetite was good, eating well , no food allergy. Per H&P, pt had diarrhea x7 days, and no urine x 2 days, decreased appetite x 2 days. Spoke with RN, pt consumed 75% of lunch today, appetite was good. Not able to complete physical exam at this time d/t pt was transfering for CT. Per nurse pt appeared skinny. Current Diet Order/ Nutrition Support Cardiac, Novasource Renal BID Pertinent Medications Vancomycin, D5 with KCl Pertinent Labs 03/20: Na 138, K 1.7L, Cl 106, BUN 41H, Cr 3.5H, [place] 7.7L, AST 66H, ALT 68H, Alb 5.4L, Glu 130H 03/19: POC 243H Nutritional Hx/Data Height 1.65 m Height (Calculated Centimeters) 165.1 Current Weight (lbs) 47.99 kg Weight (Calculated Kilograms) 48.0 Weight (Calculated Grams) [address] [place] Body Weight 136 % [place] Body Weight 78 Body Mass Index (BMI) 17.6 Recent Weight Change Yes Weight Status Underweight GI Symptoms GI Symptoms Diarrhea Difficult in: None Food Allergies No Usual diet at home Pt lived alone, usually ate fast food daily per RN Skin Integrity/Comment: skin intact, discoloration to left/right foot Current %PO Good (75-100%) Estimated Nutritional Goals Calories/Kcals/Kg 25-30 Kcals Calculated 1545-1854kcal based on IBW Protein g/k-1.2 Protein Calculated 62-74g based on IBW. monitor renal labs Fluid: ml Per MD d/t acute renal failure Nutritional Problem 1. Problem Problem Involuntary wt loss Etiology diarhhea x 7days, decreased appetited x 2 days Signs/Symptoms: recent wt loss per pt Malnutrition Alert Protein-Calorie Malnutrition N/A Is there a minimum of two criteria No selected? Query Text:Check all the applicable criteria. A minimum of two criteria are recommended for diagnosis of either severe or non-severe malnutrition. Intervention/Recommendation Comments 1. avg PO intake 66% meets 91% of low end of calorie needs and 100% of protein needs. 2. Encouraged PO intake and supplements intake Expected Outcomes/Goals Expected Outcomes/Goals 1. Monitor food and supplements intake, PO intake > 75%, pt to meet 100% nutritional needs 2. GI function to improve, no diarhhea 3. Monitor renal labs, labs to improve 3. Monitor wt weekly, wt to remain stable, change towards to IBW 4. Skin to remain intact 5. F/U as high risk in 2-3 days, 03/22-03/23
[2017-03-21] MEDS ORDERED: [UNRECOGNIZED DRUG - OTHER] IV ONE (14:30)
[2017-03-21] MEDS ORDERED: SODIUM PHOSPHATE IV ONE (14:30)
[2017-03-21] MEDS ORDERED: Sodium Phosphate 20 MMOLE in Sodium Chloride 0.9% 250 ML IV ONE (15:00)
[2017-03-21 16:29] LABS: % BASOPHILS 0.2 % (0.0-2.0); % EOSINOPHILS 0.8 % (0.0-5.0); % LYMPHOCYTES 9.2 % (20.0-50.0); % MONOCYTES 4.8 % (2.0-10.0); HEMATOCRIT 28.5 % (41.0-60); HEMOGLOBIN 9.4 gm/dL (12-16); MEAN CELL VOLUME 91.1 fl (80-99); MEAN CORPUSCULAR HGB CONC 32.9 pg (28.0-36.0); MEAN PLATELET VOLUME 7.7 fl; NEUTROPHILE ABSOLUTE 5.5 Th/cmm (1.8-8.0); PLATELET COUNT 112 Th/cmm (150-400); RED BLOOD COUNT 3.13 Mil/cmm (3.80-5.80); RED CELL DISTRIBUTION WIDTH 15.5 % (11.5-20.0); WHITE BLOOD COUNT 6.5 Th/cmm (4.8-10.8)
[2017-03-21 16:43] LABS: ALB/GLOB RATIO 1.3 (1.0-1.8); ALKALINE PHOSPHATASE 43 U/L (34-104); ANION GAP 9.7 (7.0-16.0); BILIRUBIN,TOTAL 0.7 mg/dL (0.3-1.0); BUN - UREA NITROGEN 25 mg/dL (7-25); BUN/CREATININE RATIO 11.4; CALCIUM SERUM 8.3 mg/dL (8.6-10.3); CARBON DIOXIDE 19.3 mEq/L (21.0-31.0); CHLORIDE 114 mEq/L (98-107); CREATININE - SERUM 2.2 mg/dL (0.7-1.3); GLUCOSE 141 mg/dL; MAGNESIUM 1.9 mg/dL (1.9-2.7); PHOSPHOROUS 1.8 mg/dL (2.5-5.0); SGOT 45 U/L (13-39); SGPT/ALT 57 U/L (7-52); SODIUM SERUM 138 mEq/L (136-145)
--- NOTE | 2017-03-21 20:22 | Progress Notes ---
DATE: RENAL PROGRESS NOTE LOCATION: [facility], bed #30. SUBJECTIVE: The patient is more alert. Good urine output. The patient has received multiple doses of KCl and K-Phos IV in last 20 hours. OBJECTIVE: VITAL SIGNS: Temperature 99.3, pulse 66, blood pressure 151/67, respiration rate 15. Yesterday's intake 2590, output 2700. HEART: Regular. LUNGS: Good air entry. ABDOMEN: Soft. EXTREMITIES: No edema. LABORATORY DATA: Hemoglobin 9.4, WBC 6.5, platelet 112,000. Sodium 140, potassium 4.6, chloride 115, CO2 of 22, BUN 29, creatinine 2.5, phosphorus 1.9, calcium 7.8. Last potassium 5.3. ASSESSMENT: 1. Hypokalemia. 2. Hypophosphatemia. 3. Acute kidney injury. 4. Prostate enlargement with obstructive uropathy. 5. Malnutrition. 6. Diarrhea. 7. Cardiac arrhythmias. PLAN: Discontinue IV potassium and phosphorus. Check CMP, phosphorus, magnesium, CBC with differential in the morning. The patient may benefit with Urology consultation. Discussed with the nursing staff at length. JOB# [id number]
[2017-03-22] MEDS: D5-0.9%NS 1,000 ML IV SCH ×2 (05:41→23:56)
[2017-03-22 06:11] LABS: % BASOPHILS 0.8 % (0.0-2.0); % EOSINOPHILS 1.4 % (0.0-5.0); % MONOCYTES 4.1 % (2.0-10.0); % NEUTROPHILS 84.7 % (40.0-80.0); HEMATOCRIT 28.5 % (41.0-60); HEMOGLOBIN 9.5 gm/dL (12-16); MEAN CELL VOLUME 91.4 fl (80-99); MEAN CORPUSCULAR HEMOGLOBIN 30.6 pg (27.0-31.0); MEAN CORPUSCULAR HGB CONC 33.5 pg (28.0-36.0); MEAN PLATELET VOLUME 8.2 fl; NEUTROPHILE ABSOLUTE 5.6 Th/cmm (1.8-8.0); PLATELET COUNT 94 Th/cmm (150-400); RED BLOOD COUNT 3.12 Mil/cmm (3.80-5.80); RED CELL DISTRIBUTION WIDTH 16.2 % (11.5-20.0); WHITE BLOOD COUNT 6.7 Th/cmm (4.8-10.8)
[2017-03-22 06:42] LABS: ALB/GLOB RATIO 1.2 (1.0-1.8); ALKALINE PHOSPHATASE 42 U/L (34-104); BILIRUBIN,TOTAL 0.9 mg/dL (0.3-1.0); BUN - UREA NITROGEN 19 mg/dL (7-25); CALCIUM SERUM 8.1 mg/dL (8.6-10.3); CARBON DIOXIDE 18.6 mEq/L (21.0-31.0); CHLORIDE 114 mEq/L (98-107); CREATININE - SERUM 1.9 mg/dL (0.7-1.3); GLUCOSE 90 mg/dL; MAGNESIUM 1.8 mg/dL (1.9-2.7); POTASSIUM SERUM 4.6 mEq/L (3.5-5.1); SGOT 39 U/L (13-39); SGPT/ALT 52 U/L (7-52); SODIUM SERUM 139 mEq/L (136-145)
[2017-03-22] MEDS: Albuterol/Ipratropium Neb 3 ML AERS HHN SCH ×3 (07:09→19:41)
[2017-03-22] MEDS: Levofloxacin 250mg/50mL 250 MG/50 ML BAG IV SCH (08:32)
[2017-03-22] MEDS: Vancomycin HCL 250 mg /10mL UDC PO SCH ×2 (08:43→13:12)
--- NOTE | 2017-03-22 13:24 | Infectious Disease Prog Note ---
Infectious Disease Subjective - Review of Systems Service Date: 03/22/17 Subjective: No change, diarrhea persists ( liquid ). Infectious Disease Objective - Results Result Diagrams: 03/22/17 05:44 03/22/17 05:44 Recent Labs: Laboratory Last Values WBC 6.7 Th/cmm (4.8-10.8) 03/22/17 05:44 RBC 3.12 Mil/cmm (3.80-5.80) L 03/22/17 05:44 Hgb 9.5 gm/dL (12-16) L 03/22/17 05:44 Hct 28.5 % (41.0-60) L 03/22/17 05:44 MCV 91.4 fl (80-99) 03/22/17 05:44 MCH 30.6 pg (27.0-31.0) 03/22/17 05:44 MCHC Differential 33.5 pg (28.0-36.0) 03/22/17 05:44 RDW 16.2 % (11.5-20.0) 03/22/17 05:44 Plt Count 94 Th/cmm (150-400) L 03/22/17 05:44 MPV 8.2 fl 03/22/17 05:44 Neutrophils % 84.7 % (40.0-80.0) H 03/22/17 05:44 Band Neutrophils % 0 % (0-10) 03/20/17 04:35 Lymphocytes % 9.0 % (20.0-50.0) L 03/22/17 05:44 Monocytes % 4.1 % (2.0-10.0) 03/22/17 05:44 Eosinophils % 1.4 % (0.0-5.0) 03/22/17 05:44 Basophils % 0.8 % (0.0-2.0) 03/22/17 05:44 Neutrophils (Manual) 86 % (40-80) H 03/20/17 04:35 Lymphocytes 8 % (20-50) L 03/20/17 04:35 Monocytes 5 % (2-10) 03/20/17 04:35 Eosinophils 1 % (0-5) 03/20/17 04:35 Basophils 0 % (0-3) 03/20/17 04:35 Platelet Estimate ADEQUATE (NORMAL) 03/20/17 04:35 Platelet Morphology NORMAL (NORMAL) 03/20/17 04:35 RBC Morph Micro Appear NORMAL (NORMAL) 03/20/17 04:35 Eos Smear Source URINE 03/19/17 16:25 Eos Smear Total Cells NONE SEEN (NONE SEEN) 03/19/17 16:25 PT 9.3 SECONDS (9.5-11.5) L 03/19/17 09:30 INR 0.90 (0.5-1.4) 03/19/17 09:30 PTT (Actin FS) 22.8 SECONDS (26.0-38.0) L 03/19/17 09:30 Sodium 139 mEq/L (136-145) 03/22/17 05:44 Potassium 4.6 mEq/L (3.5-5.1) 03/22/17 05:44 Chloride 114 mEq/L (98-107) H 03/22/17 05:44 Carbon Dioxide 18.6 mEq/L (21.0-31.0) L 03/22/17 05:44 Anion Gap 11.0 (7.0-16.0) 03/22/17 05:44 BUN 19 mg/dL (7-25) 03/22/17 05:44 Creatinine 1.9 mg/dL (0.7-1.3) H 03/22/17 05:44 Est GFR ( Amer) TNP 03/22/17 05:44 Est GFR (Non-Af Amer) TNP 03/22/17 05:44 BUN/Creatinine Ratio 10.0 03/22/17 05:44 Glucose 90 mg/dL 03/22/17 05:44 POC Glucose 243 MG/DL (70-105) H 03/19/17 15:14 Calcium 8.1 mg/dL (8.6-10.3) L 03/22/17 05:44 Phosphorus 3.0 mg/dL (2.5-5.0) 03/22/17 05:44 Magnesium 1.8 mg/dL (1.9-2.7) L 03/22/17 05:44 Total Bilirubin 0.9 mg/dL (0.3-1.0) 03/22/17 05:44 AST 39 U/L (13-39) 03/22/17 05:44 ALT 52 U/L (7-52) 03/22/17 05:44 Alkaline Phosphatase 42 U/L (34-104) 03/22/17 05:44 Creatine Kinase 1160 U/L (30-223) H 03/20/17 04:35 CK-MB (CK-2) 31.0 ng/mL (0.6-6.3) H 03/20/17 04:35 Troponin I 0.13 ng/mL (0.01-0.05) H* D 03/20/17 07:45 Total Protein 5.3 gm/dL (6.0-8.3) L 03/22/17 05:44 Albumin 2.9 gm/dL (4.2-5.5) L 03/22/17 05:44 Globulin 2.4 gm/dL 03/22/17 05:44 Albumin/Globulin Ratio 1.2 (1.0-1.8) 03/22/17 05:44 Urine Source PAZ PORT 03/19/17 10:05 Urine Color YELLOW 03/19/17 10:05 Urine Clarity HAZY (CLEAR) 03/19/17 10:05 Urine pH 6.0 (4.6 - 8.0) 03/19/17 10:05 Ur Specific [place] 1.020 (1.005-1.030) 03/19/17 10:05 Urine Protein 30 mg/dL (NEGATIVE) H 03/19/17 10:05 Urine Glucose (UA) NEGATIVE mg/dL (NEGATIVE) 03/19/17 10:05 Urine Ketones NEGATIVE mg/dL (NEGATIVE) 03/19/17 10:05 Urine Blood LARGE (NEGATIVE) H 03/19/17 10:05 Urine Nitrate NEGATIVE (NEGATIVE) 03/19/17 10:05 Urine Bilirubin NEGATIVE (NEGATIVE) 03/19/17 10:05 Urine Urobilinogen 0.2 E.U./dL (0.2 - 1.0) 03/19/17 10:05 Ur Leukocyte Esterase NEGATIVE (NEGATIVE) 03/19/17 10:05 Urine RBC 5-10 /hpf (0-5) H 03/19/17 10:05 Urine WBC 0-2 /hpf (0-5) 03/19/17 10:05 Ur Epithelial Cells FEW /lpf (FEW) 03/19/17 10:05 Urine Bacteria OCCASIONAL /hpf (NONE SEEN) 03/19/17 10:05 Urine Osmolality 277 mOsmol/kg 03/19/17 16:25 Urine Creatinine 60.0 mg/dl (39.0-259.0) 03/19/17 16:25 Stool Occult Blood POSITIVE (NEGATIVE) 03/22/17 04:55 Stool Leukocyte NO WBC SEEN 03/22/17 04:55 - Physical Exam Vitals and I&O: Vital Signs Temp 99.1 F 03/22/17 08:00 Pulse 68 03/22/17 12:53 Resp 17 03/22/17 12:53 BP 184/85 03/22/17 08:00 Pulse Ox 98 03/22/17 12:53 Intake & Output 03/21/17 03/22/17 03/22/17 18:59 06:59 18:59 Intake Total 971.667 60 50 Output Total 454 800 Balance 517.667 -740 50 Weight (lbs) 51.029 kg 49.64 kg Intake: Intake, IV Amount 91.667 50 Levofloxacin 250mg/50mL 50 50 250 mg In 50 ml @ 50 mls/ hr IV Q24HR [facility] Rx#: [id number] Potassium Chloride 60 meq 41.667 In D5-0.9NS 500 ml @ 125 mls/hr IV .Q4H15M [facility] Rx #:[id number] Oral 880 60 Output: Urine 450 800 Stool 3 Emesis 1 Other: # Bowel Movements 2 Stool Characteristics Liquid Liquid Liquid Active Medications: Current Medications Acetaminophen (Tylenol) 650 mg PO Q6H PRN PRN Reason: Mild Pain/Headache/T above 101 Stop: 05/18/17 11:32 Last Admin: 03/21/17 11:28 Dose: 650 mg Albuterol/Ipratropium (Duoneb Neb) 3 ml HHN [id number] [facility] Stop: 05/18/17 12:59 Last Admin: 03/22/17 12:51 Dose: 3 ml Atropine Sulfate (Atropine) 1 mg IVP Q4HR PRN PRN Reason: HEART RATE LESS THAN 40 Diphenoxylate HCl/Atropine (Lomotil) 2 tab PO Q6HR PRN PRN Reason: Diarrhea Stop: 05/19/17 08:51 Last Admin: 03/21/17 08:16 Dose: 2 tab Enalaprilat (Vasotec) 1.25 mg IVP Q6HR PRN PRN Reason: SBP > 170 MMHG Stop: 05/18/17 18:14 Last Admin: 03/21/17 16:37 Dose: 1.25 mg Levofloxacin (Levaquin Pb) 250 mg in 50 mls @ 50 mls/hr IV Q24HR [facility] Stop: 05/19/17 08:59 Last Infusion: 03/22/17 09:32 Dose: Infused Dextrose/Sodium Chloride (D5-0.9%Ns) 1,000 mls @ 70 mls/hr IV .[id number] [facility] Stop: 05/20/17 21:29 Last Admin: 03/22/17 05:41 Dose: 70 mls/hr Loperamide HCl (Imodium) 2 mg PO Q6H PRN PRN Reason: Diarrhea Stop: 05/18/17 20:52 Last Admin: 03/20/17 16:41 Dose: 2 mg Magnesium Oxide (Mag-Oxide) 400 mg PO DAILY [facility] Stop: 05/21/17 10:59 Last Admin: 03/22/17 11:46 Dose: 400 mg Metronidazole (Flagyl) 500 mg PO TID [facility] Stop: 04/03/17 13:59 Last Admin: 03/22/17 08:33 Dose: 500 mg Miscellaneous (Probiotic Screen) 1 ea MC PRN PRN PRN Reason: PROTOCOL Stop: 05/18/17 13:21 Morphine Sulfate (Morphine) 1 mg IVP Q4HR PRN PRN Reason: Pain (Moderate) Stop: 05/19/17 12:24 Ondansetron HCl (Zofran) 4 mg IVP Q6H PRN PRN Reason: Nausea / Vomiting Stop: 05/18/17 11:32 Last Admin: 03/21/17 10:04 Dose: 4 mg Temazepam (Restoril) 15 mg PO HS PRN; Protocol PRN Reason: Insomnia Stop: 05/18/17 11:32 Vancomycin HCl (Vancomycin Oral) 250 mg PO QID [facility] Stop: 05/19/17 10:59 Last Admin: 03/22/17 13:12 Dose: 250 mg General: no acute distress, cachectic HEENT: atraumatic, normocephalic, PERRLA, EOMI Neck: supple, no thyromegaly Cardiovascular: S1S2, regular Lungs: clear to auscultation bilaterally, clear to percussion Abdomen: soft, no tender, no distended, no mass Extremities: no cyanosis, no clubbing, no edema Neurological: awake, alert, oriented Skin: intact - Procedures Procedures: Procedures Procedure Code Date INSERT TUNNELED CV CATH [id number] 03/19/17 INSERTION OF INFUSION DEV INTO L SUBCLAV VEIN, PERC APPROACH 10C751B 03/19/17 Infectious Disease Assmt/Plan - Problem List Patient Problems: All Active Problems URINARY RETENTION WITH DIARRHEA (Acute) - Assessment Assessment: 1. diarrhea, gastroenteritis. Likely secretory diarrhea. C diff toxin is neg. 2. Acute renal failure, likely ATN on unknown CKD. 3. Rhabdomyolysis. 4. Seizure disorder. 5. Hypokalemia. 6. Loss of appetite, 2/2 to acute renal failure. - Plan Plan: Continue the same treatment. DC vanco po. give lomotil. Nutritional Asmnt/Malnutr-PDOC - Dietary Evaluation Malnutrition Findings (Please click <Entered> for more info): Nutritional Asmnt/Malnutrition Start: 03/20/17 14: 53 Text: Status: Active Freq: Document 03/20/17 14:53 LCHENG (Rec: 03/20/17 15:38 [email or web address] [id number]) Nutritional Asmnt/Malnutrition Patient General Information Nutritional Screening High Risk Consult Diagnosis Acute renal failure and Severe Hypokalemia Pertinent Medical Hx/Surgical Hx BPH, Cachexia, COPD Subjective Information Pt was alert during the time of visit. Pt stated wt loss recently, but not able to tell his UBW. Before addmitted, appetite was good, eating well , no food allergy. Per H&P, pt had diarrhea x7 days, and no urine x 2 days, decreased appetite x 2 days. Spoke with RN, pt consumed 75% of lunch today, appetite was good. Not able to complete physical exam at this time d/t pt was transfering for CT. Per nurse pt appeared skinny. Current Diet Order/ Nutrition Support Cardiac, Novasource Renal BID Pertinent Medications Vancomycin, D5 with KCl Pertinent Labs 03/20: Na 138, K 1.7L, Cl 106, BUN 41H, Cr 3.5H, [place] 7.7L, AST 66H, ALT 68H, Alb 5.4L, Glu 130H 03/19: POC 243H Nutritional Hx/Data Height 1.65 m Height (Calculated Centimeters) 165.1 Current Weight (lbs) 47.99 kg Weight (Calculated Kilograms) 48.0 Weight (Calculated Grams) 07046.1 [place] Body Weight 136 % [place] Body Weight 78 Body Mass Index (BMI) 17.6 Recent Weight Change Yes Weight Status Underweight GI Symptoms GI Symptoms Diarrhea Difficult in: None Food Allergies No Usual diet at home Pt lived alone, usually ate fast food daily per RN Skin Integrity/Comment: skin intact, discoloration to left/right foot Current %PO Good (75-100%) Estimated Nutritional Goals Calories/Kcals/Kg 25-30 Kcals Calculated 1545-1854kcal based on IBW Protein g/k-1.2 Protein Calculated 62-74g based on IBW. monitor renal labs Fluid: ml Per MD d/t acute renal failure Nutritional Problem 1. Problem Problem Involuntary wt loss Etiology diarhhea x 7days, decreased appetited x 2 days Signs/Symptoms: recent wt loss per pt Malnutrition Alert Protein-Calorie Malnutrition N/A Is there a minimum of two criteria No selected? Query Text:Check all the applicable criteria. A minimum of two criteria are recommended for diagnosis of either severe or non-severe malnutrition. Intervention/Recommendation Comments 1. avg PO intake 66% meets 91% of low end of calorie needs and 100% of protein needs. 2. Encouraged PO intake and supplements intake Expected Outcomes/Goals Expected Outcomes/Goals 1. Monitor food and supplements intake, PO intake > 75%, pt to meet 100% nutritional needs 2. GI function to improve, no diarhhea 3. Monitor renal labs, labs to improve 3. Monitor wt weekly, wt to remain stable, change towards to IBW 4. Skin to remain intact 5. F/U as high risk in 2-3 days, 03/22-03/23
--- NOTE | 2017-03-22 15:25 | ER Physician Documentation ---
DATE OF SERVICE: LOCATION: [facility]. ROOM: #30. The patient is conscious, alert. Vergara is draining good amount of yellow urine, tolerating food better. No complaint of any vomiting or diarrhea. OBJECTIVE: VITAL SIGNS: Respiratory rate 18, temperature 98, and blood pressure 150/80. Yesterday's intake 2493 and output 2300. HEART: Regular. LUNGS: Clear. ABDOMEN: Soft. EXTREMITIES: No edema. SIGNIFICANT LABORATORY DATA: Today, WBC 6.7, hemoglobin 9.5, and platelet count 94,000. Sodium 139, potassium 4.6, chloride 114, CO2 18.6, BUN 19, creatinine 1.9, calcium 8.1, phosphorus 3.0, and magnesium 1.8. ASSESSMENT: 1. Acute kidney injury, improving and stable. 2. Severe hypokalemia, improving. 3. Hypophosphatemia, improving. 4. Hypomagnesemia. 5. Prostate enlargement with obstructive uropathy. 6. Malnutrition. 7. Cardiac arrhythmias. PLAN: 1. Discontinue potassium and phosphorus in IV fluid. 2. Give the patient Slow-Mag p.o. 3. Continue D5 normal saline IV at 70 mL per hour. 4. The patient may benefit with Hematology consult due to low platelet count. 5. The patient will benefit with Urology consult for prostate enlargement. Discussed with the patient and nursing staff. JOB# [id number]
[2017-03-23] MEDS: Morphine Sulfate 2 mg/mL 1mL Syr IVP PRN (01:03)
[2017-03-23] MEDS: Albuterol/Ipratropium Neb 3 ML AERS HHN SCH ×3 (07:27→19:58)
[2017-03-23 10:09] LABS: % BASOPHILS 0.3 % (0.0-2.0); % EOSINOPHILS 1.2 % (0.0-5.0); % MONOCYTES 3.9 % (2.0-10.0); % NEUTROPHILS 86.6 % (40.0-80.0); HEMOGLOBIN 10.6 gm/dL (12-16); MEAN CELL VOLUME 90.6 fl (80-99); MEAN CORPUSCULAR HEMOGLOBIN 30.3 pg (27.0-31.0); MEAN CORPUSCULAR HGB CONC 33.4 pg (28.0-36.0); MEAN PLATELET VOLUME 7.8 fl; NEUTROPHILE ABSOLUTE 6.4 Th/cmm (1.8-8.0); RED BLOOD COUNT 3.49 Mil/cmm (3.80-5.80); WHITE BLOOD COUNT 7.4 Th/cmm (4.8-10.8)
[2017-03-23 10:10] LABS: HEMATOCRIT 31.6 % (41.0-60); PLATELET COUNT 114 Th/cmm (150-400)
[2017-03-23 10:29] LABS: ALB/GLOB RATIO 1.3 (1.0-1.8); ALKALINE PHOSPHATASE 43 U/L (34-104); ANION GAP 8.3 (7.0-16.0); BILIRUBIN,TOTAL 0.9 mg/dL (0.3-1.0); BUN - UREA NITROGEN 16 mg/dL (7-25); CALCIUM SERUM 8.2 mg/dL (8.6-10.3); CARBON DIOXIDE 23.9 mEq/L (21.0-31.0); CHLORIDE 106 mEq/L (98-107); CREATININE - SERUM 1.6 mg/dL (0.7-1.3); GLUCOSE 107 mg/dL (70-105); MAGNESIUM 1.6 mg/dL (1.9-2.7); POTASSIUM SERUM 3.2 mEq/L (3.5-5.1); SGOT 30 U/L (13-39); SGPT/ALT 44 U/L (7-52); SODIUM SERUM 135 mEq/L (136-145)
[2017-03-23 16:12] LABS: HEMOGLOBIN 9.5 gm/dL (12-16); MEAN CELL VOLUME 91.8 fl (80-99); MEAN CORPUSCULAR HGB CONC 31.6 pg (28.0-36.0); MEAN PLATELET VOLUME 7.2 fl; PLATELET COUNT 103 Th/cmm (150-400); RED BLOOD COUNT 3.26 Mil/cmm (3.80-5.80); RED CELL DISTRIBUTION WIDTH 15.4 % (11.5-20.0); WHITE BLOOD COUNT 6.3 Th/cmm (4.8-10.8)
[2017-03-23 16:37] LABS: ALB/GLOB RATIO 1.2 (1.0-1.8); ALKALINE PHOSPHATASE 38 U/L (34-104); ANION GAP 7.2 (7.0-16.0); BILIRUBIN,TOTAL 0.6 mg/dL (0.3-1.0); BUN - UREA NITROGEN 17 mg/dL (7-25); CALCIUM SERUM 7.7 mg/dL (8.6-10.3); CHLORIDE 105 mEq/L (98-107); CREATININE - SERUM 1.7 mg/dL (0.7-1.3); MAGNESIUM 1.6 mg/dL (1.9-2.7); PHOSPHOROUS 2.7 mg/dL (2.5-5.0); POTASSIUM SERUM 3.2 mEq/L (3.5-5.1); SGOT 25 U/L (13-39); SGPT/ALT 37 U/L (7-52); SODIUM SERUM 132 mEq/L (136-145)
[2017-03-23 16:40] LABS: GLUCOSE 145 mg/dL (70-105)
[2017-03-23 16:43] LABS: BASOPHIL 1 % (0-3); EOSINOPHIL 2 % (0-5); NEUTROPHILS 82 % (40-80)
[2017-03-23 16:44] LABS: ANISOCYTOSIS 1+; PLATELET ESTIMATE DECREASED PLATELETS (NORMAL)
[2017-03-23] MEDS ORDERED: D5-0.9NS w/40 mEq KCL 1,000 ML IV SCH (17:15)
[2017-03-23] MEDS ORDERED: Mag Sulfate 2gm/50mL Premix 2 GM/50 ML BAG IV ONE (17:16)
[2017-03-23] MEDS: Levofloxacin 250mg/50mL 250 MG/50 ML BAG IV SCH (19:29)
[2017-03-23] MEDS ORDERED: D5-0.45NS w/40 mEq KCL 1,000 ML IV SCH (21:54)
--- NOTE | 2017-03-23 22:55 | Progress Notes ---
DATE: LOCATION: [facility], room 30. SUBJECTIVE: The patient is not in acute distress. Essentially same good urine output. PHYSICAL EXAMINATION: VITAL SIGNS: Temperature 97.4, pulse 65, and blood pressure 133/69. Yesterday's intake 1031 and output 1254. HEART: Regular. LUNGS: Good air entry. ABDOMEN: Soft. EXTREMITIES: No edema. LABORATORY DATA: WBC 6.3, hemoglobin 9.5, and platelet 103,000. Sodium 132, potassium 3.2, chloride 105, CO2 23, BUN 17, creatinine 1.7, calcium 7.7, blood sugar 145, phosphorus 2.7, and magnesium 1.6. IMPRESSION: 1. Acute kidney injury, improving. 2. Hypomagnesemia. 3. Anemia. 4. Hypokalemia. 5. Prostate enlargement due to obstructive uropathy. 6. Malnutrition. PLAN: Change IV fluid to NS with Lasix for hyponatremia, KCl rider will be given today. Lab in the morning. Continue other treatment. JOB# [id number]
[2017-03-24 06:06] LABS: % BASOPHILS 0.8 % (0.0-2.0); % EOSINOPHILS 2.6 % (0.0-5.0); % LYMPHOCYTES 7.9 % (20.0-50.0); % MONOCYTES 5.6 % (2.0-10.0); % NEUTROPHILS 83.1 % (40.0-80.0); HEMOGLOBIN 11.4 gm/dL (12-16); MEAN CELL VOLUME 90.3 fl (80-99); MEAN CORPUSCULAR HEMOGLOBIN 30.2 pg (27.0-31.0); MEAN CORPUSCULAR HGB CONC 33.4 pg (28.0-36.0); MEAN PLATELET VOLUME 7.5 fl; NEUTROPHILE ABSOLUTE 6.3 Th/cmm (1.8-8.0); PLATELET COUNT 117 Th/cmm (150-400); RED BLOOD COUNT 3.76 Mil/cmm (3.80-5.80); RED CELL DISTRIBUTION WIDTH 14.8 % (11.5-20.0)
[2017-03-24 06:12] LABS: WHITE BLOOD COUNT 7.6 Th/cmm (4.8-10.8)
[2017-03-24 06:26] LABS: ALB/GLOB RATIO 1.2 (1.0-1.8); ALKALINE PHOSPHATASE 45 U/L (34-104); ANION GAP 8.7 (7.0-16.0); BILIRUBIN,TOTAL 0.4 mg/dL (0.3-1.0); BUN - UREA NITROGEN 27 mg/dL (7-25); BUN/CREATININE RATIO 14.2; CARBON DIOXIDE 24.7 mEq/L (21.0-31.0); CHLORIDE 102 mEq/L (98-107); CREATININE - SERUM 1.9 mg/dL (0.7-1.3); MAGNESIUM 2.2 mg/dL (1.9-2.7); PHOSPHOROUS 2.6 mg/dL (2.5-5.0); POTASSIUM SERUM 3.4 mEq/L (3.5-5.1); SGOT 25 U/L (13-39); SGPT/ALT 38 U/L (7-52); SODIUM SERUM 132 mEq/L (136-145)
[2017-03-24 06:29] LABS: GLUCOSE 92 mg/dL (70-105)
[2017-03-24] MEDS: Albuterol/Ipratropium Neb 3 ML AERS HHN SCH ×3 (07:34→19:14)
--- NOTE | 2017-03-24 07:36 | Consultation ---
DATE OF CONSULTATION: 03/23/2017 INPATIENT GI CONSULTATION CONSULTING PHYSICIAN: Dr. Land. REASON FOR CONSULTATION: Diarrhea. HISTORY OF PRESENT ILLNESS: The patient is an 81-year-old male with past medical history significant for benign prostatic hypertrophy, smoking and COPD, who reported to the Emergency Room with 10 days of unrelenting diarrhea. The patient notes that he has been having diarrhea every few hours for about 10 days now and that has mostly been brown in color. He notes that the diarrhea has also been waking him from sleep every few hours and he has not been able to have much of a break at all. He denies any pain associated with this. He only vomited one time, which was yesterday here in the hospital. He denies any fevers and denies any sick contacts. He does report having a lot of [email or web address]. for his diet, but has not had any other strange things to eat. PAST MEDICAL HISTORY: Benign prostatic hypertrophy, COPD, smoker. PAST SURGICAL HISTORY: The patient denies any abdominal surgeries. FAMILY HISTORY: Noncontributory. SOCIAL HISTORY: The patient smokes 1 pack a day. He does not drink alcohol. ENDOSCOPIC HISTORY: The patient notes he did have a colonoscopy 1 year ago. He thinks it was in [place]. He seems to recall being told he may have had cancer and that they were going to call him about this, but then he knows he has never heard from them again. REVIEW OF SYSTEMS: A 12-point review of systems was performed and is positive for weight loss and nausea, otherwise negative. CURRENT MEDICATIONS: Tylenol, albuterol, atropine sulfate, Lomotil, Vasotec, Levaquin, Imodium, Cozaar, Flagyl, probiotic, morphine, Zofran as needed, Restoril. PHYSICAL EXAMINATION: VITAL SIGNS: Blood pressure is 162/83, pulse of 60, temperature 97.4, oxygenation 99% on room air. GENERAL: The patient is lying flat in bed. He is alert and oriented x 3. He is in some moderate distress with anxiety. HEAD, EARS, EYES, NOSE AND THROAT: There is no scleral icterus. Pupils are equal and reactive to light. Extraocular muscles are intact. Dry mucous membranes. No sublingual icterus. Normocephalic head otherwise. NECK: Supple, no JVD, no thyromegaly, no lymphadenopathy. CHEST: Clear to auscultation bilaterally. CARDIOVASCULAR: S1 and S2 are present, regular rate and rhythm. ABDOMEN: Soft, nontender to palpation. No guarding, no rebound. He is thin. EXTREMITIES: Nonpitting edema is noted. Positive pulses. SKIN: There are multiple tattoos. No jaundice or other rashes. LABORATORY DATA: White blood cell count 6.7, hemoglobin 9.5, platelet count 94. Sodium 139, BUN 19, creatinine is 1.9 which is down from 2.5 on admission. Total bilirubin is 0.9, AST 39, ALT 52, alkaline phosphatase 42, albumin 2.9. Occult blood is positive. Stool leukocytes are negative. He has had stool sent for C. diff toxin which was negative. He had Shiga toxin in the stool, which is negative. IMAGING: A CT without contrast was performed and showed very limited suboptimal exam due to limited amount of intra-abdominal fat and lack of contrast, there is poor delineation of the bowel wall margins and intra-abdominal organs, small amount of ascites, extensive atherosclerotic changes, and severe degenerative changes of the spine. IMPRESSION: This is an 81-year-old male with past medical history of chronic obstructive pulmonary disease, who is presenting with 10 days of severe diarrhea. 1. Diarrhea. 2. Weight loss. 3. Possible colon cancer as stated by the patient. DISCUSSION: Clinically his syndrome of 10 days of very severe diarrhea is consistent mostly with an infectious etiology, possibly secretory diarrhea, although C. diff is negative. We will need to send the other stool studies now. More concerning is the fact that the patient reports he had a colonoscopy 1 year ago, he may have been given a diagnosis of cancer, although he cannot be sure. We will need to try to obtain this result. I offered the patient a repeat colonoscopy now and he really does not want to have this done given it was a very stressful and involved test for him to undergo. RECOMMENDATION: 1. We will send stool culture, ova and parasite, cryptosporidium and Giardia if possible. 2. The staff will try to obtain the record of his colonoscopy and ascertain if he was given a diagnosis of colon cancer. 3. Continue antidiarrheals with Lomotil and Imodium for now given there is no C. diff or evidence of a bacterial infection. 4. If the patient fails to improve and if we cannot obtain the colonoscopy report, we will again try to convince him to undergo colonoscopy now. Thank you for allowing me to participate in this patient's care. Please call with further questions. JOB# [id number]
--- NOTE | 2017-03-24 08:10 | GI Progress Note ---
Subjective - Review of Systems Service Date: 03/24/17 Subjective: RN reports no BMs overnight, and that stool is more formed Objective - Results Result Diagrams: 03/24/17 05:50 03/24/17 05:50 Recent Labs: Laboratory Last Values WBC 7.6 Th/cmm (4.8-10.8) D 03/24/17 05:50 RBC 3.76 Mil/cmm (3.80-5.80) L 03/24/17 05:50 Hgb 11.4 gm/dL (12-16) L 03/24/17 05:50 Hct 34.0 % (41.0-60) L D 03/24/17 05:50 MCV 90.3 fl (80-99) 03/24/17 05:50 MCH 30.2 pg (27.0-31.0) 03/24/17 05:50 MCHC Differential 33.4 pg (28.0-36.0) 03/24/17 05:50 RDW 14.8 % (11.5-20.0) 03/24/17 05:50 Plt Count 117 Th/cmm (150-400) L 03/24/17 05:50 MPV 7.5 fl 03/24/17 05:50 Neutrophils % 83.1 % (40.0-80.0) H 03/24/17 05:50 Band Neutrophils % 0 % (0-10) 03/20/17 04:35 Lymphocytes % 7.9 % (20.0-50.0) L 03/24/17 05:50 Monocytes % 5.6 % (2.0-10.0) 03/24/17 05:50 Eosinophils % 2.6 % (0.0-5.0) 03/24/17 05:50 Basophils % 0.8 % (0.0-2.0) 03/24/17 05:50 Neutrophils (Manual) 82 % (40-80) H 03/23/17 16:07 Lymphocytes 11 % (20-50) L 03/23/17 16:07 Monocytes 4 % (2-10) 03/23/17 16:07 Eosinophils 2 % (0-5) 03/23/17 16:07 Basophils 1 % (0-3) 03/23/17 16:07 Platelet Estimate DECREASED PLATELETS (NORMAL) 03/23/17 16:07 Platelet Morphology NORMAL (NORMAL) 03/20/17 04:35 Anisocytosis 1+ 03/23/17 16:07 RBC Morph Micro Appear ABNORMAL (NORMAL) 03/23/17 16:07 Eos Smear Source URINE 03/19/17 16:25 Eos Smear Total Cells NONE SEEN (NONE SEEN) 03/19/17 16:25 PT 9.3 SECONDS (9.5-11.5) L 03/19/17 09:30 INR 0.90 (0.5-1.4) 03/19/17 09:30 PTT (Actin FS) 22.8 SECONDS (26.0-38.0) L 03/19/17 09:30 Sodium 132 mEq/L (136-145) L 03/24/17 05:50 Potassium 3.4 mEq/L (3.5-5.1) L 03/24/17 05:50 Chloride 102 mEq/L (98-107) 03/24/17 05:50 Carbon Dioxide 24.7 mEq/L (21.0-31.0) 03/24/17 05:50 Anion Gap 8.7 (7.0-16.0) 03/24/17 05:50 BUN 27 mg/dL (7-25) H 03/24/17 05:50 Creatinine 1.9 mg/dL (0.7-1.3) H 03/24/17 05:50 Est GFR ( Amer) TNP 03/24/17 05:50 Est GFR (Non-Af Amer) TNP 03/24/17 05:50 BUN/Creatinine Ratio 14.2 03/24/17 05:50 Glucose 92 mg/dL (70-105) D 03/24/17 05:50 POC Glucose 243 MG/DL (70-105) H 03/19/17 15:14 Calcium 8.0 mg/dL (8.6-10.3) L 03/24/17 05:50 Phosphorus 2.6 mg/dL (2.5-5.0) 03/24/17 05:50 Magnesium 2.2 mg/dL (1.9-2.7) 03/24/17 05:50 Total Bilirubin 0.4 mg/dL (0.3-1.0) 03/24/17 05:50 AST 25 U/L (13-39) 03/24/17 05:50 ALT 38 U/L (7-52) 03/24/17 05:50 Alkaline Phosphatase 45 U/L (34-104) 03/24/17 05:50 Creatine Kinase 1160 U/L (30-223) H 03/20/17 04:35 CK-MB (CK-2) 31.0 ng/mL (0.6-6.3) H 03/20/17 04:35 Troponin I 0.13 ng/mL (0.01-0.05) H* D 03/20/17 07:45 Total Protein 5.2 gm/dL (6.0-8.3) L 03/24/17 05:50 Albumin 2.8 gm/dL (4.2-5.5) L 03/24/17 05:50 Globulin 2.4 gm/dL 03/24/17 05:50 Albumin/Globulin Ratio 1.2 (1.0-1.8) 03/24/17 05:50 TSH 0.69 uIU/ml (0.34-5.60) 03/23/17 09:55 Urine Source PAZ PORT 03/19/17 10:05 Urine Color YELLOW 03/19/17 10:05 Urine Clarity HAZY (CLEAR) 03/19/17 10:05 Urine pH 6.0 (4.6 - 8.0) 03/19/17 10:05 Ur Specific [place] 1.020 (1.005-1.030) 03/19/17 10:05 Urine Protein 30 mg/dL (NEGATIVE) H 03/19/17 10:05 Urine Glucose (UA) NEGATIVE mg/dL (NEGATIVE) 03/19/17 10:05 Urine Ketones NEGATIVE mg/dL (NEGATIVE) 03/19/17 10:05 Urine Blood LARGE (NEGATIVE) H 03/19/17 10:05 Urine Nitrate NEGATIVE (NEGATIVE) 03/19/17 10:05 Urine Bilirubin NEGATIVE (NEGATIVE) 03/19/17 10:05 Urine Urobilinogen 0.2 E.U./dL (0.2 - 1.0) 03/19/17 10:05 Ur Leukocyte Esterase NEGATIVE (NEGATIVE) 03/19/17 10:05 Urine RBC 5-10 /hpf (0-5) H 03/19/17 10:05 Urine WBC 0-2 /hpf (0-5) 03/19/17 10:05 Ur Epithelial Cells FEW /lpf (FEW) 03/19/17 10:05 Urine Bacteria OCCASIONAL /hpf (NONE SEEN) 03/19/17 10:05 Urine Osmolality 277 mOsmol/kg 03/19/17 16:25 Urine Creatinine 60.0 mg/dl (39.0-259.0) 03/19/17 16:25 Stool Occult Blood NEGATIVE (NEGATIVE) 03/23/17 10:30 Stool Leukocyte NO WBC SEEN 03/22/17 04:55 - Physical Exam Vitals and I&O: Vital Signs Temp 98.7 F 03/23/17 16:11 Pulse 63 03/24/17 07:34 Resp 16 03/24/17 07:34 BP 133/69 03/23/17 16:11 Pulse Ox 100 03/24/17 07:34 Intake & Output 03/23/17 03/24/17 03/24/17 18:59 06:59 18:59 Intake Total 1500 Output Total 2019 Balance -520 Weight (lbs) 52.163 kg Intake: Oral 1500 Output: Urine 2019 Other: # Bowel Movements 1 Stool Characteristics Soft Formed Active Medications: Current Medications Acetaminophen (Tylenol) 650 mg PO Q6H PRN PRN Reason: Mild Pain/Headache/T above 101 Stop: 05/18/17 11:32 Last Admin: 03/21/17 11:28 Dose: 650 mg Albuterol/Ipratropium (Duoneb Neb) 3 ml HHN [id number] [facility] Stop: 05/18/17 12:59 Last Admin: 03/24/17 07:34 Dose: 3 ml Atropine Sulfate (Atropine) 1 mg IVP Q4HR PRN PRN Reason: HEART RATE LESS THAN 40 Diphenoxylate HCl/Atropine (Lomotil) 2 tab PO Q6HR PRN PRN Reason: Diarrhea Stop: 05/19/17 08:51 Last Admin: 03/21/17 08:16 Dose: 2 tab Enalaprilat (Vasotec) 1.25 mg IVP Q6HR PRN PRN Reason: SBP > 170 MMHG Stop: 05/18/17 18:14 Last Admin: 03/22/17 21:14 Dose: 1.25 mg Levofloxacin (Levaquin Pb) 250 mg in 50 mls @ 50 mls/hr IV Q24HR [facility] Stop: 05/19/17 08:59 Last Admin: 03/23/17 19:29 Dose: 50 mls/hr Potassium Chloride/Dextrose/Sod Cl (D5-0.45ns W/40 Meq Kcl) 1,000 mls @ 50 mls/ hr IV .Q20H [facility] Stop: 05/22/17 21:53 Last Admin: 03/23/17 23:10 Dose: 50 mls/hr Loperamide HCl (Imodium) 2 mg PO Q6H PRN PRN Reason: Diarrhea Stop: 05/18/17 20:52 Last Admin: 03/20/17 16:41 Dose: 2 mg Losartan Potassium (Cozaar) 100 mg PO DAILY [facility] Stop: 05/22/17 08:59 Last Admin: 03/23/17 09:16 Dose: 100 mg Magnesium Oxide (Mag-Oxide) 400 mg PO DAILY [facility] Stop: 05/21/17 10:59 Last Admin: 03/23/17 09:17 Dose: 400 mg Metronidazole (Flagyl) 500 mg PO TID [facility] Stop: 04/03/17 13:59 Last Admin: 03/23/17 20:35 Dose: 500 mg Miscellaneous (Probiotic Screen) 1 ea MC PRN PRN PRN Reason: PROTOCOL Stop: 05/18/17 13:21 Morphine Sulfate (Morphine) 1 mg IVP Q4HR PRN PRN Reason: Pain (Moderate) Stop: 05/19/17 12:24 Last Admin: 03/23/17 01:03 Dose: 1 mg Ondansetron HCl (Zofran) 4 mg IVP Q6H PRN PRN Reason: Nausea / Vomiting Stop: 05/18/17 11:32 Last Admin: 03/21/17 10:04 Dose: 4 mg Temazepam (Restoril) 15 mg PO HS PRN; Protocol PRN Reason: Insomnia Stop: 05/18/17 11:32 General: Alert, Oriented x3 Neck: Supple Abdomen: Soft, Other (non tender, no guard, no rebound, no distension) Psych/Mental Status: Mental status NL - Procedures Procedures: Procedures Procedure Code Date INSERT TUNNELED CV CATH [id number] 03/19/17 INSERTION OF INFUSION DEV INTO L SUBCLAV VEIN, PERC APPROACH [id number] 03/19/17 Assessment/Plan - Problem List Patient Problems: All Active Problems URINARY RETENTION WITH DIARRHEA (Acute) - Assessment Assessment: # Diarrhea # ODALIS Secretory most likely as he is having BMs overnight. All microbiology studies have been negative thus far, although we are repeating CDiff and sending O/P and Giardia. Pt thinks he may have been told he had colon cancer last year at the time of his outside colonoscopy, and we need to retrieve this report. He does not want a repeat exam now Plan: - retrieve the colonoscopy report from last year. He was offered repeat exam now given the nature of his diarrhea, but refused this - f/u O/P, giardia, and repeat CDiff - continue lamotil for diarrhea relief - encouarage the patient to hold off on the amount of soda he drinks as this may be contributing - continue diet - ODALIS is improving Thank you for allowing me to participate in this patient's care
[2017-03-24] MEDS: Levofloxacin 250mg/50mL 250 MG/50 ML BAG IV SCH (08:50)
[2017-03-24] MEDS ORDERED: Potassium Chloride 20 mEq ER Tab PO ONE (09:01)
--- NOTE | 2017-03-24 16:38 | Infectious Disease Prog Note ---
Infectious Disease Subjective - Review of Systems Service Date: 03/24/17 Subjective: No change, diarrhea persists ( liquid ). Infectious Disease Objective - Results Result Diagrams: 03/24/17 05:50 03/24/17 05:50 Recent Labs: Laboratory Last Values WBC 7.6 Th/cmm (4.8-10.8) D 03/24/17 05:50 RBC 3.76 Mil/cmm (3.80-5.80) L 03/24/17 05:50 Hgb 11.4 gm/dL (12-16) L 03/24/17 05:50 Hct 34.0 % (41.0-60) L D 03/24/17 05:50 MCV 90.3 fl (80-99) 03/24/17 05:50 MCH 30.2 pg (27.0-31.0) 03/24/17 05:50 MCHC Differential 33.4 pg (28.0-36.0) 03/24/17 05:50 RDW 14.8 % (11.5-20.0) 03/24/17 05:50 Plt Count 117 Th/cmm (150-400) L 03/24/17 05:50 MPV 7.5 fl 03/24/17 05:50 Neutrophils % 83.1 % (40.0-80.0) H 03/24/17 05:50 Band Neutrophils % 0 % (0-10) 03/20/17 04:35 Lymphocytes % 7.9 % (20.0-50.0) L 03/24/17 05:50 Monocytes % 5.6 % (2.0-10.0) 03/24/17 05:50 Eosinophils % 2.6 % (0.0-5.0) 03/24/17 05:50 Basophils % 0.8 % (0.0-2.0) 03/24/17 05:50 Neutrophils (Manual) 82 % (40-80) H 03/23/17 16:07 Lymphocytes 11 % (20-50) L 03/23/17 16:07 Monocytes 4 % (2-10) 03/23/17 16:07 Eosinophils 2 % (0-5) 03/23/17 16:07 Basophils 1 % (0-3) 03/23/17 16:07 Platelet Estimate DECREASED PLATELETS (NORMAL) 03/23/17 16:07 Platelet Morphology NORMAL (NORMAL) 03/20/17 04:35 Anisocytosis 1+ 03/23/17 16:07 RBC Morph Micro Appear ABNORMAL (NORMAL) 03/23/17 16:07 Eos Smear Source URINE 03/19/17 16:25 Eos Smear Total Cells NONE SEEN (NONE SEEN) 03/19/17 16:25 PT 9.3 SECONDS (9.5-11.5) L 03/19/17 09:30 INR 0.90 (0.5-1.4) 03/19/17 09:30 PTT (Actin FS) 22.8 SECONDS (26.0-38.0) L 03/19/17 09:30 Sodium 132 mEq/L (136-145) L 03/24/17 05:50 Potassium 3.4 mEq/L (3.5-5.1) L 03/24/17 05:50 Chloride 102 mEq/L (98-107) 03/24/17 05:50 Carbon Dioxide 24.7 mEq/L (21.0-31.0) 03/24/17 05:50 Anion Gap 8.7 (7.0-16.0) 03/24/17 05:50 BUN 27 mg/dL (7-25) H 03/24/17 05:50 Creatinine 1.9 mg/dL (0.7-1.3) H 03/24/17 05:50 Est GFR ( Amer) TNP 03/24/17 05:50 Est GFR (Non-Af Amer) TNP 03/24/17 05:50 BUN/Creatinine Ratio 14.2 03/24/17 05:50 Glucose 92 mg/dL (70-105) D 03/24/17 05:50 POC Glucose 243 MG/DL (70-105) H 03/19/17 15:14 Calcium 8.0 mg/dL (8.6-10.3) L 03/24/17 05:50 Phosphorus 2.6 mg/dL (2.5-5.0) 03/24/17 05:50 Magnesium 2.2 mg/dL (1.9-2.7) 03/24/17 05:50 Total Bilirubin 0.4 mg/dL (0.3-1.0) 03/24/17 05:50 AST 25 U/L (13-39) 03/24/17 05:50 ALT 38 U/L (7-52) 03/24/17 05:50 Alkaline Phosphatase 45 U/L (34-104) 03/24/17 05:50 Creatine Kinase 1160 U/L (30-223) H 03/20/17 04:35 CK-MB (CK-2) 31.0 ng/mL (0.6-6.3) H 03/20/17 04:35 Troponin I 0.13 ng/mL (0.01-0.05) H* D 03/20/17 07:45 Total Protein 5.2 gm/dL (6.0-8.3) L 03/24/17 05:50 Albumin 2.8 gm/dL (4.2-5.5) L 03/24/17 05:50 Globulin 2.4 gm/dL 03/24/17 05:50 Albumin/Globulin Ratio 1.2 (1.0-1.8) 03/24/17 05:50 Vitamin B12 456 pg/mL (211-946) 03/23/17 09:55 TSH 0.69 uIU/ml (0.34-5.60) 03/23/17 09:55 Urine Source PAZ PORT 03/19/17 10:05 Urine Color YELLOW 03/19/17 10:05 Urine Clarity HAZY (CLEAR) 03/19/17 10:05 Urine pH 6.0 (4.6 - 8.0) 03/19/17 10:05 Ur Specific Letts 1.020 (1.005-1.030) 03/19/17 10:05 Urine Protein 30 mg/dL (NEGATIVE) H 03/19/17 10:05 Urine Glucose (UA) NEGATIVE mg/dL (NEGATIVE) 03/19/17 10:05 Urine Ketones NEGATIVE mg/dL (NEGATIVE) 03/19/17 10:05 Urine Blood LARGE (NEGATIVE) H 03/19/17 10:05 Urine Nitrate NEGATIVE (NEGATIVE) 03/19/17 10:05 Urine Bilirubin NEGATIVE (NEGATIVE) 03/19/17 10:05 Urine Urobilinogen 0.2 E.U./dL (0.2 - 1.0) 03/19/17 10:05 Ur Leukocyte Esterase NEGATIVE (NEGATIVE) 03/19/17 10:05 Urine RBC 5-10 /hpf (0-5) H 03/19/17 10:05 Urine WBC 0-2 /hpf (0-5) 03/19/17 10:05 Ur Epithelial Cells FEW /lpf (FEW) 03/19/17 10:05 Urine Bacteria OCCASIONAL /hpf (NONE SEEN) 03/19/17 10:05 Urine Osmolality 277 mOsmol/kg 03/19/17 16:25 Urine Creatinine 60.0 mg/dl (39.0-259.0) 03/19/17 16:25 Stool Occult Blood NEGATIVE (NEGATIVE) 03/23/17 10:30 Stool Leukocyte NO WBC SEEN 03/22/17 04:55 - Physical Exam Vitals and I&O: Vital Signs Temp 97.4 F 03/24/17 12:19 Pulse 61 03/24/17 12:19 Resp 17 03/24/17 15:24 BP 134/74 03/24/17 12:19 Pulse Ox 100 03/24/17 12:19 Intake & Output 03/23/17 03/24/17 03/24/17 18:59 06:59 18:59 Intake Total 1500 50 Output Total 2020 Balance -520 50 Weight (lbs) 52.163 kg Intake: Intake, IV Amount 50 Levofloxacin 250mg/50mL 50 250 mg In 50 ml @ 50 mls/ hr IV Q24HR [facility] Rx#: [id number] Oral 1500 Output: Urine 2019 Other: # Bowel Movements 1 Stool Characteristics Soft Liquid Formed [place] Active Medications: Current Medications Acetaminophen (Tylenol) 650 mg PO Q6H PRN PRN Reason: Mild Pain/Headache/T above 101 Stop: 05/18/17 11:32 Last Admin: 03/21/17 11:28 Dose: 650 mg Albuterol/Ipratropium (Duoneb Neb) 3 ml HHN [id number] [facility] Stop: 05/18/17 12:59 Last Admin: 03/24/17 12:16 Dose: 3 ml Atropine Sulfate (Atropine) 1 mg IVP Q4HR PRN PRN Reason: HEART RATE LESS THAN 40 Diphenoxylate HCl/Atropine (Lomotil) 2 tab PO Q6HR PRN PRN Reason: Diarrhea Stop: 05/19/17 08:51 Last Admin: 03/21/17 08:16 Dose: 2 tab Enalaprilat (Vasotec) 1.25 mg IVP Q6HR PRN PRN Reason: SBP > 170 MMHG Stop: 05/18/17 18:14 Last Admin: 03/22/17 21:14 Dose: 1.25 mg Levofloxacin (Levaquin Pb) 250 mg in 50 mls @ 50 mls/hr IV Q24HR [facility] Stop: 05/19/17 08:59 Last Admin: 03/24/17 08:50 Dose: 50 mls/hr Potassium Chloride/Dextrose/Sod Cl (D5-0.45ns W/40 Meq Kcl) 1,000 mls @ 50 mls/ hr IV .Q20H [facility] Stop: 05/22/17 21:53 Last Admin: 03/23/17 23:10 Dose: 50 mls/hr Loperamide HCl (Imodium) 2 mg PO Q6H PRN PRN Reason: Diarrhea Stop: 05/18/17 20:52 Last Admin: 03/20/17 16:41 Dose: 2 mg Losartan Potassium (Cozaar) 100 mg PO DAILY [facility] Stop: 05/22/17 08:59 Last Admin: 03/24/17 08:49 Dose: 100 mg Magnesium Oxide (Mag-Oxide) 400 mg PO DAILY [facility] Stop: 05/21/17 10:59 Last Admin: 03/24/17 08:49 Dose: 400 mg Metronidazole (Flagyl) 500 mg PO TID [facility] Stop: 04/03/17 13:59 Last Admin: 03/24/17 13:24 Dose: 500 mg Miscellaneous (Probiotic Screen) 1 ea MC PRN PRN PRN Reason: PROTOCOL Stop: 05/18/17 13:21 Morphine Sulfate (Morphine) 1 mg IVP Q4HR PRN PRN Reason: Pain (Moderate) Stop: 05/19/17 12:24 Last Admin: 03/23/17 01:03 Dose: 1 mg Ondansetron HCl (Zofran) 4 mg IVP Q6H PRN PRN Reason: Nausea / Vomiting Stop: 05/18/17 11:32 Last Admin: 03/21/17 10:04 Dose: 4 mg Temazepam (Restoril) 15 mg PO HS PRN; Protocol PRN Reason: Insomnia Stop: 05/18/17 11:32 General: no acute distress, well developed, well nourished HEENT: atraumatic, normocephalic, PERRLA, EOMI Neck: supple, no thyromegaly Cardiovascular: S1S2, regular Lungs: clear to auscultation bilaterally, clear to percussion Abdomen: soft, no tender, no distended, no hepatomegaly, no splenomegaly Extremities: no cyanosis, no clubbing Neurological: awake, alert, oriented Skin: intact - Procedures Procedures: Procedures Procedure Code Date INSERT TUNNELED CV CATH [id number] 03/19/17 INSERTION OF INFUSION DEV INTO L SUBCLAV VEIN, PERC APPROACH [id number] 03/19/17 Infectious Disease Assmt/Plan - Problem List Patient Problems: All Active Problems URINARY RETENTION WITH DIARRHEA (Acute) - Assessment Assessment: 1. diarrhea, gastroenteritis. Likely secretory diarrhea. C diff toxin is neg. 2. Acute renal failure, likely ATN on unknown CKD. 3. Rhabdomyolysis. 4. Seizure disorder. 5. Hypokalemia. 6. Loss of appetite, 2/2 to acute renal failure. - Plan Plan: Continue the same treatment. give lomotil. Nutritional Asmnt/Malnutr-PDOC - Dietary Evaluation Malnutrition Findings (Please click <Entered> for more info): Nutritional Asmnt/Malnutrition Start: 03/20/17 14: 53 Text: Status: Active Freq: Document 03/20/17 14:53 LCHENG (Rec: 03/20/17 15:38 [email or web address] [id number]) Nutritional Asmnt/Malnutrition Patient General Information Nutritional Screening High Risk Consult Diagnosis Acute renal failure and Severe Hypokalemia Pertinent Medical Hx/Surgical Hx BPH, Cachexia, COPD Subjective Information Pt was alert during the time of visit. Pt stated wt loss recently, but not able to tell his UBW. Before addmitted, appetite was good, eating well , no food allergy. Per H&P, pt had diarrhea x7 days, and no urine x 2 days, decreased appetite x 2 days. Spoke with RN, pt consumed 75% of lunch today, appetite was good. Not able to complete physical exam at this time d/t pt was transfering for CT. Per nurse pt appeared skinny. Current Diet Order/ Nutrition Support Cardiac, Novasource Renal BID Pertinent Medications Vancomycin, D5 with KCl Pertinent Labs 03/20: Na 138, K 1.7L, Cl 106, BUN 41H, Cr 3.5H, Antonio 7.7L, AST 66H, ALT 68H, Alb 5.4L, Glu 130H 03/19: POC 243H Nutritional Hx/Data Height 1.65 m Height (Calculated Centimeters) 165.1 Current Weight (lbs) 47.99 kg Weight (Calculated Kilograms) 48.0 Weight (Calculated Grams) 10276.1 [place] Body Weight 136 % [place] Body Weight 78 Body Mass Index (BMI) 17.6 Recent Weight Change Yes Weight Status Underweight GI Symptoms GI Symptoms Diarrhea Difficult in: None Food Allergies No Usual diet at home Pt lived alone, usually ate fast food daily per RN Skin Integrity/Comment: skin intact, discoloration to left/right foot Current %PO Good (75-100%) Estimated Nutritional Goals Calories/Kcals/Kg 25-30 Kcals Calculated 1545-1854kcal based on IBW Protein g/k-1.2 Protein Calculated 62-74g based on IBW. monitor renal labs Fluid: ml Per MD d/t acute renal failure Nutritional Problem 1. Problem Problem Involuntary wt loss Etiology diarhhea x 7days, decreased appetited x 2 days Signs/Symptoms: recent wt loss per pt Malnutrition Alert Protein-Calorie Malnutrition N/A Is there a minimum of two criteria No selected? Query Text:Check all the applicable criteria. A minimum of two criteria are recommended for diagnosis of either severe or non-severe malnutrition. Intervention/Recommendation Comments 1. avg PO intake 66% meets 91% of low end of calorie needs and 100% of protein needs. 2. Encouraged PO intake and supplements intake Expected Outcomes/Goals Expected Outcomes/Goals 1. Monitor food and supplements intake, PO intake > 75%, pt to meet 100% nutritional needs 2. GI function to improve, no diarhhea 3. Monitor renal labs, labs to improve 3. Monitor wt weekly, wt to remain stable, change towards to IBW 4. Skin to remain intact 5. F/U as high risk in 2-3 days, 03/22-03/23
[2017-03-24] MEDS: D5-0.45NS w/40 mEq KCL 1,000 ML IV SCH (22:05)
[2017-03-25] MEDS: Morphine Sulfate 2 mg/mL 1mL Syr IVP PRN (03:59)
[2017-03-25 06:25] LABS: % BASOPHILS 0.2 % (0.0-2.0); % EOSINOPHILS 1.4 % (0.0-5.0); % LYMPHOCYTES 8.2 % (20.0-50.0); % MONOCYTES 6.4 % (2.0-10.0); % NEUTROPHILS 83.8 % (40.0-80.0); HEMATOCRIT 29.8 % (41.0-60); HEMOGLOBIN 9.8 gm/dL (12-16); MEAN CELL VOLUME 91.2 fl (80-99); MEAN CORPUSCULAR HEMOGLOBIN 29.9 pg (27.0-31.0); MEAN CORPUSCULAR HGB CONC 32.8 pg (28.0-36.0); MEAN PLATELET VOLUME 8.2 fl; NEUTROPHILE ABSOLUTE 5.8 Th/cmm (1.8-8.0); PLATELET COUNT 115 Th/cmm (150-400); RED BLOOD COUNT 3.26 Mil/cmm (3.80-5.80); RED CELL DISTRIBUTION WIDTH 15.1 % (11.5-20.0); WHITE BLOOD COUNT 6.9 Th/cmm (4.8-10.8)
[2017-03-25 06:50] LABS: ALB/GLOB RATIO 1.2 (1.0-1.8); ALKALINE PHOSPHATASE 43 U/L (34-104); ANION GAP 9.5 (7.0-16.0); BILIRUBIN,TOTAL 0.4 mg/dL (0.3-1.0); BUN - UREA NITROGEN 26 mg/dL (7-25); BUN/CREATININE RATIO 17.3; CARBON DIOXIDE 22.6 mEq/L (21.0-31.0); CHLORIDE 106 mEq/L (98-107); CREATININE - SERUM 1.5 mg/dL (0.7-1.3); GLUCOSE 111 mg/dL (70-105); POTASSIUM SERUM 4.1 mEq/L (3.5-5.1); SGOT 24 U/L (13-39); SGPT/ALT 32 U/L (7-52); SODIUM SERUM 134 mEq/L (136-145)
[2017-03-25] MEDS: Albuterol/Ipratropium Neb 3 ML AERS HHN SCH ×3 (07:00→19:06)
[2017-03-25] MEDS: Levofloxacin 250mg/50mL 250 MG/50 ML BAG IV SCH (09:20)
[2017-03-25] MEDS: D5-0.45NS w/40 mEq KCL 1,000 ML IV SCH (13:31)
[2017-03-26] MEDS: D5-0.45NS w/40 mEq KCL 1,000 ML IV SCH ×3 (00:39→21:42)
[2017-03-26 05:12] LABS: % BASOPHILS 0.5 % (0.0-2.0); % EOSINOPHILS 2.8 % (0.0-5.0); % LYMPHOCYTES 8.3 % (20.0-50.0); % MONOCYTES 7.6 % (2.0-10.0); % NEUTROPHILS 80.8 % (40.0-80.0); HEMATOCRIT 26.2 % (41.0-60); HEMOGLOBIN 8.8 gm/dL (12-16); MEAN CELL VOLUME 91.1 fl (80-99); MEAN CORPUSCULAR HEMOGLOBIN 30.5 pg (27.0-31.0); MEAN CORPUSCULAR HGB CONC 33.5 pg (28.0-36.0); MEAN PLATELET VOLUME 7.6 fl; PLATELET COUNT 105 Th/cmm (150-400); RED BLOOD COUNT 2.88 Mil/cmm (3.80-5.80); RED CELL DISTRIBUTION WIDTH 14.9 % (11.5-20.0); WHITE BLOOD COUNT 6.2 Th/cmm (4.8-10.8)
[2017-03-26 05:32] LABS: ALB/GLOB RATIO 1.1 (1.0-1.8); ALKALINE PHOSPHATASE 39 U/L (34-104); ANION GAP 6.1 (7.0-16.0); BILIRUBIN,TOTAL 0.4 mg/dL (0.3-1.0); BUN - UREA NITROGEN 26 mg/dL (7-25); BUN/CREATININE RATIO 17.3; CALCIUM SERUM 7.9 mg/dL (8.6-10.3); CARBON DIOXIDE 23.8 mEq/L (21.0-31.0); CHLORIDE 107 mEq/L (98-107); CREATININE - SERUM 1.5 mg/dL (0.7-1.3); GLUCOSE 109 mg/dL (70-105); POTASSIUM SERUM 4.9 mEq/L (3.5-5.1); SGOT 22 U/L (13-39); SGPT/ALT 26 U/L (7-52); SODIUM SERUM 132 mEq/L (136-145)
[2017-03-26 06:38] LABS: INR 1.06 (0.5-1.4)
[2017-03-26] MEDS: Albuterol/Ipratropium Neb 3 ML AERS HHN SCH ×3 (06:45→19:11)
[2017-03-26] MEDS: Levofloxacin 250mg/50mL 250 MG/50 ML BAG IV SCH (08:43)
[2017-03-26 15:19] LABS: AMPHETAMINE URINE NEGATIVE (NEGATIVE); BARBITURATES URINE NEGATIVE (NEGATIVE); METHADONE URINE POSITIVE (NEGATIVE)
[2017-03-27 06:04] LABS: % BASOPHILS 0.4 % (0.0-2.0); % EOSINOPHILS 1.1 % (0.0-5.0); % LYMPHOCYTES 9.8 % (20.0-50.0); % MONOCYTES 7.3 % (2.0-10.0); % NEUTROPHILS 81.4 % (40.0-80.0); MEAN CORPUSCULAR HEMOGLOBIN 30.7 pg (27.0-31.0); MEAN CORPUSCULAR HGB CONC 33.7 pg (28.0-36.0); MEAN PLATELET VOLUME 7.4 fl; RED BLOOD COUNT 3.26 Mil/cmm (3.80-5.80); RED CELL DISTRIBUTION WIDTH 15.2 % (11.5-20.0); WHITE BLOOD COUNT 6.1 Th/cmm (4.8-10.8)
[2017-03-27 06:07] LABS: HEMATOCRIT 29.7 % (41.0-60)
[2017-03-27 06:25] LABS: ANION GAP 10.5 (7.0-16.0); BUN - UREA NITROGEN 20 mg/dL (7-25); BUN/CREATININE RATIO 13.3; CALCIUM SERUM 8.5 mg/dL (8.6-10.3); CARBON DIOXIDE 20.4 mEq/L (21.0-31.0); CHLORIDE 109 mEq/L (98-107); CREATININE - SERUM 1.5 mg/dL (0.7-1.3); GLUCOSE 86 mg/dL (70-105); POTASSIUM SERUM 4.9 mEq/L (3.5-5.1); SODIUM SERUM 135 mEq/L (136-145)
[2017-03-27 07:06] LABS: PLATELET COUNT 138 Th/cmm (150-400)
[2017-03-27] MEDS: Albuterol/Ipratropium Neb 3 ML AERS HHN SCH ×3 (07:48→19:09)
[2017-03-27] MEDS ORDERED: Magnesium Citrate 1.75 GM/300 mL Bottle PO ONE (08:00)
[2017-03-27] MEDS: Lactulose 10 Gm/15 mL 30mL UDC PO SCH ×2 (08:51→11:28)
[2017-03-27] MEDS: Levofloxacin 250mg/50mL 250 MG/50 ML BAG IV SCH (08:54)
[2017-03-27] MEDS ORDERED: Lactulose 10 Gm/15 mL 30mL UDC ONE (11:26)
[2017-03-27] MEDS ORDERED: Magnesium Hydroxide (MOM) 30 mL UDC PO PRN (12:12)
[2017-03-27] MEDS: D5-0.45NS w/40 mEq KCL 1,000 ML IV SCH (13:08)
[2017-03-27] MEDS ORDERED: Meperidine 50 mg/mL 1mL Syr ONE (14:52)
--- NOTE | 2017-03-27 17:09 | Operative Report ---
DATE OF SURGERY: 03/27/2017 PROCEDURE PERFORMED: Esophagogastroduodenoscopy with biopsy. INDICATION FOR PROCEDURE: Anemia and change of bowel habits. This was done to rule out peptic ulcer disease versus celiac disease. CONSENT: Informed consent was obtained from the patient after planning benefits and risks including infection, bleeding, perforation, . ANESTHESIA USED: Demerol 25 mg, Versed 1 mg. PREOPERATIVE DIAGNOSES: 1. Anemia. 2. Change in bowel habits. POSTOPERATIVE DIAGNOSES: 1. Few small superficial duodenal ulcer. 2. Gastritis. 3. Distal esophagitis. 4. Large hiatal hernia. DESCRIPTION OF PROCEDURE: The patient was placed in left lateral position. Upper Olympus endoscope was introduced into the mouth and advanced to the esophagus, which was intubated under direct visualization. Esophageal mucosa was examined on the way down showed distal esophagitis, some irregularity of the mucosa, some whitish spots. GE junction was identified at 35 cm. Scope was advanced to the stomach where the gastric mucosa was examined that showed gastritis and erythema involving the body and antrum. Scope was retroflexed to examine the cardia and fundus and it showed large hiatal hernia. Scope was then straightened and advanced to the duodenum where the bulb and second parts were examined. They were both normal. Biopsies were taken from the third portion of the duodenum and from the bulb to rule out celiac disease. Scope was then withdrawn to the stomach. Biopsies were taken from the antrum for CLOtest. Scope was then withdrawn to the GE junction. The hiatal hernia was about 4-5 cm. Biopsies were taken from the GE junction to rule out Christi esophagitis. Scope was then withdrawn. The patient tolerated the procedure well. There were no immediate postoperative complications. RECOMMENDATIONS: 1. Follow up biopsy results. 2. Treat H. pylori if positive. 3. Modify diet if the patient has celiac disease. 4. PPI. 5. Proceed with colonoscopy. Thank you, Dr. Land, for allowing me to participate in the care of the patient. If you have any further questions, please let me know. JOB# [id number]
--- NOTE | 2017-03-27 17:21 | Operative Report ---
DATE OF SURGERY: 03/27/2017 PROCEDURE: 1. Colonoscopy with polypectomy using a snare with cautery. 2. Colonoscopy with polypectomy using biopsy forceps in different polyps. CONSENT: Informed consent was obtained from the patient after planning benefits and risks including infection, bleeding, perforation, . ANESTHESIA USED: Demerol 12.5 mg and Versed 0.5 mg. PREOPERATIVE DIAGNOSES: 1. Anemia. 2. Change of bowel habits in the form of chronic diarrhea. POSTOPERATIVE DIAGNOSES: 1. Rectal polyp, status post polypectomy using a snare with cautery. 2. Sigmoid colon polyp, status post polypectomy using biopsy forceps. 3. Transverse colon polyps, status post polypectomy using biopsy forceps. 4. Chronic diarrhea along with microscopic colitis, status post random biopsies. DESCRIPTION OF PROCEDURE: The patient was placed in left lateral position. Digital rectal examination showed internal hemorrhoids. An Olympus colonoscope was inserted through the anus and advanced throughout the colon to the cecum, which was identified by the ileocecal valve and appendiceal orifice. Scope was then withdrawn while examining the four quadrants of colonic mucosa and suctioning air from the colon. On the way end, a small polyp about 4 mm was seen in the transverse colon, it was flushed, it was removed using biopsy forceps. A couple of other tiny polyps were seen, they were not significant, so they were left behind. Biopsies were taken randomly from the colon to rule out microscopic colitis. On the way out, a polyp was seen in the sigmoid colon, which was about 3-4 mm. It was also removed using biopsy forceps. Scope was withdrawn further at the rectum, there was another polyp, which was about 6-7 mm. It was removed using snare polypectomy technique with cautery and suction through the biopsy channel. In the anal canal, the scope was retroflexed to examine the anal verge and it showed internal hemorrhoid. Scope was then straightened and withdrawn. The patient tolerated the procedure well. There were no immediate postoperative complications. RECOMMENDATIONS: 1. Follow up pathology report. 2. No aspirin or blood thinner for a week. 3. Diet as tolerated. 4. Further recommendations to follow. More than likely, the patient will need to have a colonoscopy in 5 years if his health condition would allow. Thank you Dr. Land for allowing me to participate in the care of the patient. If you have any further questions, please let me know. [facility]# [id number]
[2017-03-27] MEDS: Lactobacillus Rhamnosus 10 Billion CFU Capsule PO SCH (17:28)
[2017-03-28] MEDS: D5-0.45NS w/40 mEq KCL 1,000 ML IV SCH (01:52)
[2017-03-28] MEDS: Albuterol/Ipratropium Neb 3 ML AERS HHN SCH (07:52)
[2017-03-28] MEDS: Lactobacillus Rhamnosus 10 Billion CFU Capsule PO SCH (09:28)
[2017-03-28] MEDS: Levofloxacin 250mg/50mL 250 MG/50 ML BAG IV SCH (09:39)
--- NOTE | 2017-03-28 10:25 | Infectious Disease Prog Note ---
Infectious Disease Subjective - Review of Systems Service Date: 03/28/17 Subjective: No change, No diarrhea. Infectious Disease Objective - Results Result Diagrams: 03/27/17 05:50 03/27/17 05:50 Recent Labs: Laboratory Last Values WBC 6.1 Th/cmm (4.8-10.8) 03/27/17 05:50 RBC 3.26 Mil/cmm (3.80-5.80) L 03/27/17 05:50 Hgb 10.0 gm/dL (12-16) L 03/27/17 05:50 Hct 29.7 % (41.0-60) L D 03/27/17 05:50 MCV 91.0 fl (80-99) 03/27/17 05:50 MCH 30.7 pg (27.0-31.0) 03/27/17 05:50 MCHC Differential 33.7 pg (28.0-36.0) 03/27/17 05:50 RDW 15.2 % (11.5-20.0) 03/27/17 05:50 Plt Count 138 Th/cmm (150-400) L D 03/27/17 05:50 MPV 7.4 fl 03/27/17 05:50 Neutrophils % 81.4 % (40.0-80.0) H 03/27/17 05:50 Band Neutrophils % 0 % (0-10) 03/20/17 04:35 Lymphocytes % 9.8 % (20.0-50.0) L 03/27/17 05:50 Monocytes % 7.3 % (2.0-10.0) 03/27/17 05:50 Eosinophils % 1.1 % (0.0-5.0) 03/27/17 05:50 Basophils % 0.4 % (0.0-2.0) 03/27/17 05:50 Neutrophils (Manual) 82 % (40-80) H 03/23/17 16:07 Lymphocytes 11 % (20-50) L 03/23/17 16:07 Monocytes 4 % (2-10) 03/23/17 16:07 Eosinophils 2 % (0-5) 03/23/17 16:07 Basophils 1 % (0-3) 03/23/17 16:07 Platelet Estimate DECREASED PLATELETS (NORMAL) 03/23/17 16:07 Platelet Morphology NORMAL (NORMAL) 03/20/17 04:35 Anisocytosis 1+ 03/23/17 16:07 RBC Morph Micro Appear ABNORMAL (NORMAL) 03/23/17 16:07 Eos Smear Source URINE 03/19/17 16:25 Eos Smear Total Cells NONE SEEN (NONE SEEN) 03/19/17 16:25 PT 11.0 SECONDS (9.5-11.5) 03/26/17 04:55 INR 1.06 (0.5-1.4) 03/26/17 04:55 PTT (Actin FS) 22.8 SECONDS (26.0-38.0) L 03/19/17 09:30 Sodium 135 mEq/L (136-145) L 03/27/17 05:50 Potassium 4.9 mEq/L (3.5-5.1) 03/27/17 05:50 Chloride 109 mEq/L (98-107) H 03/27/17 05:50 Carbon Dioxide 20.4 mEq/L (21.0-31.0) L 03/27/17 05:50 Anion Gap 10.5 (7.0-16.0) 03/27/17 05:50 BUN 20 mg/dL (7-25) 03/27/17 05:50 Creatinine 1.5 mg/dL (0.7-1.3) H 03/27/17 05:50 Est GFR ( Amer) TNP 03/27/17 05:50 Est GFR (Non-Af Amer) TNP 03/27/17 05:50 BUN/Creatinine Ratio 13.3 03/27/17 05:50 Glucose 86 mg/dL (70-105) 03/27/17 05:50 POC Glucose 94 MG/DL (70 - 105) 03/27/17 13:20 Calcium 8.5 mg/dL (8.6-10.3) L 03/27/17 05:50 Phosphorus 2.6 mg/dL (2.5-5.0) 03/24/17 05:50 Magnesium 2.0 mg/dL (1.9-2.7) 03/25/17 05:55 Total Bilirubin 0.4 mg/dL (0.3-1.0) 03/26/17 04:55 AST 22 U/L (13-39) 03/26/17 04:55 ALT 26 U/L (7-52) 03/26/17 04:55 Alkaline Phosphatase 39 U/L (34-104) 03/26/17 04:55 Creatine Kinase 163 U/L (30-223) 03/25/17 05:55 CK-MB (CK-2) 31.0 ng/mL (0.6-6.3) H 03/20/17 04:35 Troponin I 0.13 ng/mL (0.01-0.05) H* D 03/20/17 07:45 Total Protein 4.6 gm/dL (6.0-8.3) L 03/26/17 04:55 Albumin 2.4 gm/dL (4.2-5.5) L 03/26/17 04:55 Globulin 2.2 gm/dL 03/26/17 04:55 Albumin/Globulin Ratio 1.1 (1.0-1.8) 03/26/17 04:55 Vitamin B12 456 pg/mL (211-946) 03/23/17 09:55 TSH 0.69 uIU/ml (0.34-5.60) 03/23/17 09:55 Urine Source PAZ PORT 03/19/17 10:05 Urine Color YELLOW 03/19/17 10:05 Urine Clarity HAZY (CLEAR) 03/19/17 10:05 Urine pH 6.0 (4.6 - 8.0) 03/19/17 10:05 Ur Specific [place] 1.020 (1.005-1.030) 03/19/17 10:05 Urine Protein 30 mg/dL (NEGATIVE) H 03/19/17 10:05 Urine Glucose (UA) NEGATIVE mg/dL (NEGATIVE) 03/19/17 10:05 Urine Ketones NEGATIVE mg/dL (NEGATIVE) 03/19/17 10:05 Urine Blood LARGE (NEGATIVE) H 03/19/17 10:05 Urine Nitrate NEGATIVE (NEGATIVE) 03/19/17 10:05 Urine Bilirubin NEGATIVE (NEGATIVE) 03/19/17 10:05 Urine Urobilinogen 0.2 E.U./dL (0.2 - 1.0) 03/19/17 10:05 Ur Leukocyte Esterase NEGATIVE (NEGATIVE) 03/19/17 10:05 Urine RBC 5-10 /hpf (0-5) H 03/19/17 10:05 Urine WBC 0-2 /hpf (0-5) 03/19/17 10:05 Ur Epithelial Cells FEW /lpf (FEW) 03/19/17 10:05 Urine Bacteria OCCASIONAL /hpf (NONE SEEN) 03/19/17 10:05 Urine Osmolality 277 mOsmol/kg 03/19/17 16:25 Urine Creatinine 60.0 mg/dl (39.0-259.0) 03/19/17 16:25 Stool Occult Blood NEGATIVE (NEGATIVE) 03/23/17 10:30 Stool Leukocyte NO WBC SEEN 03/22/17 04:55 Urine Opiates Screen POSITIVE (NEGATIVE) H 03/26/17 14:50 Urine Methadone Screen POSITIVE (NEGATIVE) 03/26/17 14:50 Ur Barbiturates Screen NEGATIVE (NEGATIVE) 03/26/17 14:50 Ur Tricyclics Screen NEGATIVE (NEGATIVE) 03/26/17 14:50 Ur Phencyclidine Scrn NEGATIVE (NEGATIVE) 03/26/17 14:50 Amphetamines Screen NEGATIVE (NEGATIVE) 03/26/17 14:50 U Methamphetamines Scrn NEGATIVE (NEGATIVE) 03/26/17 14:50 U Benzodiazepines Scrn POSITIVE (NEGATIVE) H 03/26/17 14:50 U Cocaine Metab Screen NEGATIVE (NEGATIVE) 03/26/17 14:50 U Cannabinoids Screen NEGATIVE (NEGATIVE) 03/26/17 14:50 - Physical Exam Vitals and I&O: Vital Signs Temp 98.0 F 03/28/17 04:00 Pulse 69 03/28/17 09:29 Resp 20 03/28/17 07:55 BP 188/89 03/28/17 09:29 Pulse Ox 95 03/28/17 07:53 Intake & Output 03/27/17 03/28/17 03/28/17 18:59 06:59 18:59 Intake Total 1050 1000 360 Output Total 1150 Balance 1050 1000 -790 Weight (lbs) 53.977 kg Intake: Intake, IV Amount 1050 1000 D5-0.45NS w/40 mEq KCL 1, 1000 1000 000 ml @ 100 mls/hr IV . Q10H TO Rx#:[id number] Levofloxacin 250mg/50mL 50 250 mg In 50 ml @ 50 mls/ hr IV Q24HR TO Rx#: [id number] Oral 360 Output: Urine 1150 Other: # Bowel Movements 0 Stool Characteristics Liquid Active Medications: Current Medications Acetaminophen (Tylenol) 650 mg PO Q6H PRN PRN Reason: Mild Pain/Headache/T above 101 Stop: 05/18/17 11:32 Last Admin: 03/21/17 11:28 Dose: 650 mg Albuterol/Ipratropium (Duoneb Neb) 3 ml HHN [id number] [facility] Stop: 05/18/17 12:59 Last Admin: 03/28/17 07:52 Dose: 3 ml Amlodipine Besylate (Norvasc) 10 mg PO DAILY [facility] Stop: 05/28/17 08:59 Levofloxacin (Levaquin Pb) 250 mg in 50 mls @ 50 mls/hr IV Q24HR TO Stop: 05/19/17 08:59 Last Admin: 03/28/17 09:39 Dose: 50 mls/hr Potassium Chloride/Dextrose/Sod Cl (D5-0.45ns W/40 Meq Kcl) 1,000 mls @ 100 mls /hr IV .Q10H [facility] Stop: 05/23/17 21:01 Last Admin: 03/28/17 01:52 Dose: 100 mls/hr Lactobacillus Rhamnosus (Culturelle) 1 each PO DAILY [facility] Stop: 05/26/17 16:59 Last Admin: 03/28/17 09:28 Dose: 1 each Loperamide HCl (Imodium) 2 mg PO Q6H PRN PRN Reason: Diarrhea Stop: 05/18/17 20:52 Last Admin: 03/20/17 16:41 Dose: 2 mg Losartan Potassium (Cozaar) 100 mg PO DAILY [facility] Stop: 05/22/17 08:59 Last Admin: 03/28/17 09:29 Dose: 100 mg Magnesium Hydroxide (Milk Of Magnesia) 30 ml PO HS PRN PRN Reason: Constipation Stop: 05/26/17 12:11 Last Admin: 03/27/17 12:31 Dose: 30 ml Magnesium Oxide (Mag-Oxide) 400 mg PO DAILY [facility] Stop: 05/21/17 10:59 Last Admin: 03/28/17 09:30 Dose: 400 mg Miscellaneous (Probiotic Screen) 1 ea MC PRN PRN PRN Reason: PROTOCOL Stop: 05/18/17 13:21 Ondansetron HCl (Zofran) 4 mg IVP Q6H PRN PRN Reason: Nausea / Vomiting Stop: 05/18/17 11:32 Last Admin: 03/21/17 10:04 Dose: 4 mg Pantoprazole Sodium (Protonix) 40 mg PO DAILY TO Stop: 05/28/17 08:59 General: no acute distress, well developed, well nourished HEENT: atraumatic, normocephalic, PERRLA Neck: supple, no thyromegaly, no lymphadenopathy Cardiovascular: S1S2, regular, systolic murmur Lungs: clear to auscultation bilaterally, clear to percussion Abdomen: soft, no tender, no distended, no hepatomegaly Extremities: no cyanosis, no clubbing, no edema Neurological: awake, alert, oriented Skin: intact - Procedures Procedures: Procedures Procedure Code Date INSERT TUNNELED CV CATH 27301 03/19/17 INSERTION OF INFUSION DEV INTO L SUBCLAV VEIN, PERC APPROACH [id number] 03/19/17 Infectious Disease Assmt/Plan - Problem List Patient Problems: All Active Problems URINARY RETENTION WITH DIARRHEA (Acute) - Assessment Assessment: 1. diarrhea, gastroenteritis. Likely secretory diarrhea. C diff toxin is neg. 2. Acute renal failure, likely ATN on unknown CKD. 3. Rhabdomyolysis. 4. Seizure disorder. 5. Hypokalemia. 6. Loss of appetite, 2/2 to acute renal failure. - Plan Plan: dc antibiotics. give lomotil. Nutritional Asmnt/Malnutr-PDOC - Dietary Evaluation Malnutrition Findings (Please click <Entered> for more info): Nutritional Asmnt/Malnutrition Start: 03/20/17 14: 53 Text: Status: Active Freq: Document 03/20/17 14:53 [facility] (Rec: 03/20/17 15:38 [facility] [id number]) Nutritional Asmnt/Malnutrition Patient General Information Nutritional Screening High Risk Consult Diagnosis Acute renal failure and Severe Hypokalemia Pertinent Medical Hx/Surgical Hx BPH, Cachexia, COPD Subjective Information Pt was alert during the time of visit. Pt stated wt loss recently, but not able to tell his UBW. Before addmitted, appetite was good, eating well , no food allergy. Per H&P, pt had diarrhea x7 days, and no urine x 2 days, decreased appetite x 2 days. Spoke with RN, pt consumed 75% of lunch today, appetite was good. Not able to complete physical exam at this time d/t pt was transfering for CT. Per nurse pt appeared skinny. Current Diet Order/ Nutrition Support Cardiac, Novasource Renal BID Pertinent Medications Vancomycin, D5 with KCl Pertinent Labs 03/20: Na 138, K 1.7L, Cl 106, BUN 41H, Cr 3.5H, [place] 7.7L, AST 66H, ALT 68H, Alb 5.4L, Glu 130H 03/19: POC 243H Nutritional Hx/Data Height 1.65 m Height (Calculated Centimeters) 165.1 Current Weight (lbs) 47.99 kg Weight (Calculated Kilograms) 48.0 Weight (Calculated Grams) 12064.1 [place] Body Weight 136 % [place] Body Weight 78 Body Mass Index (BMI) 17.6 Recent Weight Change Yes Weight Status Underweight GI Symptoms GI Symptoms Diarrhea Difficult in: None Food Allergies No Usual diet at home Pt lived alone, usually ate fast food daily per RN Skin Integrity/Comment: skin intact, discoloration to left/right foot Current %PO Good (75-100%) Estimated Nutritional Goals Calories/Kcals/Kg 25-30 Kcals Calculated 1545-1854kcal based on IBW Protein g/k-1.2 Protein Calculated 62-74g based on IBW. monitor renal labs Fluid: ml Per MD d/t acute renal failure Nutritional Problem 1. Problem Problem Involuntary wt loss Etiology diarhhea x 7days, decreased appetited x 2 days Signs/Symptoms: recent wt loss per pt Malnutrition Alert Protein-Calorie Malnutrition N/A Is there a minimum of two criteria No selected? Query Text:Check all the applicable criteria. A minimum of two criteria are recommended for diagnosis of either severe or non-severe malnutrition. Intervention/Recommendation Comments 1. avg PO intake 66% meets 91% of low end of calorie needs and 100% of protein needs. 2. Encouraged PO intake and supplements intake Expected Outcomes/Goals Expected Outcomes/Goals 1. Monitor food and supplements intake, PO intake > 75%, pt to meet 100% nutritional needs 2. GI function to improve, no diarhhea 3. Monitor renal labs, labs to improve 3. Monitor wt weekly, wt to remain stable, change towards to IBW 4. Skin to remain intact 5. F/U as high risk in 2-3 days, 03/22-03/23
--- NOTE | 2017-03-28 20:38 | Discharge Summary ---
DATE OF DISCHARGE: 03/28/2017 PRINCIPAL DIAGNOSES: 1. 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 2. Life-threatening hypokalemia. 3. Ventricular tachycardia secondary to hypokalemia. 4. Rhabdomyolysis. 5. Acute kidney injury secondary to ATN. 6. Chronic obstructive pulmonary disease by chest x-ray. 7. Sinus bradycardia. 8. Hypertension. 9. Gastritis. 10. Hiatal hernia. 11. DJD. 12. Declining self-care. 13. BPH. 14. Multiple superficial gastric ulcerations by upper endoscopy. BRIEF STATEMENT FOR THE REASON FOR ADMISSION: An 81-year-old Citizen Of [place] male presented to Emergency Room on 03/19/2017, for evaluation of generalized weakness along with diarrhea and unable to urinate. The patient was worked up in the Emergency Room, noted to have a life-threatening hypokalemia, renal failure, ventricular tachycardia, rhabdomyolysis. The patient was admitted to ICU. Please refer to my dictated medical H and P for further information. HOSPITAL COURSE: The patient was admitted to Intensive Care Unit. The patient was given large dose of potassium, IV fluid. Infectious Disease, Nephrology and Cardiology consultation were requested in view of diarrhea. Stool studies were also obtained. P.o. antibiotic was started. The patient was followed by the telecommunications consultant. The patient had multiple episodes of ventricular tachycardia, which was corrected as well. Once the electrolytes are corrected, the patient had a large amount of IV fluid infusion. The patient was slowly improving, but diarrhea continues to persist, which required lengthy hospitalization. The patient has also had extensive evaluation for his diarrhea in the form of upper endoscopy and lower endoscopy, which did reveal microscopic colitis. Also noted to have gastritis and large hiatal hernia and superficial ulceration. The patient was noted to have microcytic hypochromic anemia as well. The patient did have albumin of 2.7 consistent with protein calorie malnutrition. The patient was noted to have unidentifiable liquid in a syringe which was unknown, which was caught by nursing staff and it was presumed that it came from his friend. Urine drug screen was done, which was positive for benzos and opiates as well. The patient did receive significant amount of treatment from telecommunications consultant and the patient was slowly improving. Antihypertensive medication was also started as well. The patient was discharged to home. The patient was extremely debilitated, so decision was made that the patient should be discharged to longterm. The patient was discharged to longterm on 03/28/2017 where the patient will be followed by ____. The patient will be taking Protonix 40 mg daily along with continuation of Levaquin and Flagyl as well. At the time of discharge, all medications are reconciliated. JOB# [id number]
[2017-03-29] MEDS ORDERED: Pantoprazole 40 mg EC Tab PO SCH (07:30)
--- NOTE | 2017-03-29 17:01 | Pathology Report ---
[id number] Collection Date: 03/27/2017 Surgeon: Dr. Shannon Perez Specimen Description: 1. Duodenum biopsy 2. Gastroesophageal junction biopsy 3. Transverse colon polyp 4. Random colon biopsy 5. Sigmoid colon polyp 6. Gross Description: Part I: Received in formalin are multiple levy soft tissue fragments ranging from 0.1 to 0.2 cm in greatest dimension. Totally submitted in one cassette labeled A. Gross Description: Part II: Received in formalin two levy soft tissue fragments ranging from 0.1 to 0.2 cm in greatest dimension. Totally submitted in one cassette labeled B. Gross Description: Part III: Received in formalin is a single levy soft tissue fragment measuring 0.2 cm in greatest dimension. Totally submitted in one cassette labeled C. Gross Description: Part IV: Received in formalin are multiple levy soft tissue fragments ranging from 0.1 to 0.2 cm in greatest dimension. Totally submitted in one cassette labeled D. Gross Description: Part V: Received in formalin is a single levy soft tissue fragment measuring 0.2 cm in greatest dimension. Totally submitted in one cassette labeled E. Gross Description: Part : Received in formalin are multiple levy soft tissue fragments ranging from 0.2 to 0.3 cm in greatest dimension. Totally submitted in one cassette labeled F. Microscopic Description: Part I: The histologic sections show duodenal mucosa with intact intestinal villi, showing no evidence for villous abnormality. Diagnosis: Part I: No evidence for celiac disease/sprue. Microscopic Description: Part II: The histologic sections show glandular and squamous mucosa consistent with gastroesophageal junction. There is chronic inflammation present consisting of increased numbers of lymphocytes and plasma cells. The Alcian blue stain shows no significant abnormalities. The PAS stain shows no evidence for fungal organisms. Diagnosis: Part II: Chronic esophagitis, gastroesophageal junction biopsy. Microscopic Description: Part III: The histologic sections show colon mucosa with adenomatous glandular changes present consisting of nuclear enlargement and stratification with mostly tubules formed, consistent with tubular adenoma. 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 Microscopic Description: Part IV: The histologic sections show colon mucosa with mild to moderate chronic inflammation consisting of increased numbers of lymphocytes and plasma cells admixed with smaller numbers of neutrophils. There is no evidence for ulceration. There are increased numbers of intraepithelial inflammatory cells consisting of both neutrophils and lymphocytes which involve more than 30% of the glandular epithelium. Diagnosis: Part IV: Chronic colitis with increased numbers of intraepithelial inflammatory cells, consistent with microscopic colitis. Microscopic Description: Part V: The histologic sections show colon mucosa with adenomatous glandular changes present consisting of nuclear enlargement and stratification with mostly tubules formed, consistent with tubular adenoma. 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 Microscopic Description: Part : The histologic sections show colon mucosa with adenomatous glandular changes present consisting of nuclear enlargement and stratification with mostly tubules formed, consistent with tubular adenoma. 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 [facility]# [id number] [place]
== END 2017-03-28 12:30 | DRG 391 ==
LOC: ER 09:04 → ICU 11:32 → TELE 03-21 14:00
PROVIDERS: ADMIT Internal Medicine; ATTEND Internal Medicine
PROC: 02HV33Z Insertion of Infusion Device into Superior Vena Cava, Percutaneous Approach (ICD-10-PCS; principal; 2017-03-19)
PROC: 0DB98ZX Excision of Duodenum, Via Natural or Artificial Opening Endoscopic, Diagnostic (ICD-10-PCS; 2017-03-27)
PROC: 0DB68ZX Excision of Stomach, Via Natural or Artificial Opening Endoscopic, Diagnostic (ICD-10-PCS; 2017-03-27)
PROC: 0DB48ZX Excision of Esophagogastric Junction, Via Natural or Artificial Opening Endoscopic, Diagnostic (ICD-10-PCS; 2017-03-27)
PROC: 0DBP8ZX Excision of Rectum, Via Natural or Artificial Opening Endoscopic, Diagnostic (ICD-10-PCS; 2017-03-27)
PROC: 0DBL8ZX Excision of Transverse Colon, Via Natural or Artificial Opening Endoscopic, Diagnostic (ICD-10-PCS; 2017-03-27)
PROC: 0DBN8ZX Excision of Sigmoid Colon, Via Natural or Artificial Opening Endoscopic, Diagnostic (ICD-10-PCS; 2017-03-27)
DX: K52.839 Microscopic colitis, unspecified (principal); N17.0 Acute kidney failure with tubular necrosis; I47.2 Ventricular tachycardia; R64 Cachexia; E46 Unspecified protein-calorie malnutrition; M62.82 Rhabdomyolysis; E83.39 Other disorders of phosphorus metabolism; E83.42 Hypomagnesemia; K26.9 Duodenal ulcer, unspecified as acute or chronic, without hemorrhage or perforation; N13.8 Other obstructive and reflux uropathy; Z68.1 Body mass index [BMI] 19.9 or less, adult; E86.0 Dehydration; J44.9 Chronic obstructive pulmonary disease, unspecified; G40.909 Epilepsy, unspecified, not intractable, without status epilepticus; N40.0 Benign prostatic hyperplasia without lower urinary tract symptoms; K29.70 Gastritis, unspecified, without bleeding; F17.210 Nicotine dependence, cigarettes, uncomplicated; D50.9 Iron deficiency anemia, unspecified; E87.6 Hypokalemia; K64.8 Other hemorrhoids; R33.9 Retention of urine, unspecified; K20.9 Esophagitis, unspecified; M54.9 Dorsalgia, unspecified; N18.9 Chronic kidney disease, unspecified; I12.9 Hypertensive chronic kidney disease with stage 1 through stage 4 chronic kidney disease, or unspecified chronic kidney disease; K44.9 Diaphragmatic hernia without obstruction or gangrene; M19.90 Unspecified osteoarthritis, unspecified site; K25.9 Gastric ulcer, unspecified as acute or chronic, without hemorrhage or perforation; Z83.3 Family history of diabetes mellitus; Z82.49 Family history of ischemic heart disease and other diseases of the circulatory system
CPT/HCPCS: 36415-UA; 71010-TC; 72125-TC; 76770-TC; 80048-TC; 80053-TC; 80307; 81001-TC; 81015-TC; 82270-TC; 82550-TC; 82553; 82570-TC; 82607-90; 82948-90; 83735-TC; 83935-90; 84100-TC; 84132-TC; 84156-TC; 84443-TC; 84484-TC; 85007-TC; 85025-TC; 85027-TC; 85610-TC; 87046-90; 87209-90; 87230-TC; 87338-TC; 89055-TC; 90799; 93005; 94640; 94760; 97530; C9113; J0282; J1644; J1940; J1956; J2001; J2270; J2405; J2997; J3370; J3475; J3480; J7042; X3904; X6024; Z7506; Z7610